=== PATIENT | male | born 1935 | race Caucasian/White ===

== ENCOUNTER 2017-09-27 16:26 | Inpatient (IN) | payer MEDICARE, OTHER ==
[~2017-09-27] VITALS: Ht 170.2 cm; Wt 71.8 kg
[~2017-09-27 16:26] MED LIST: ALPR0.25 PO; ASPI81TA23 PO; ATEN25TA PO; CLOP75TA PO; LISI2.5T3 PO; METF500 PO; METF500T PO; MULT1TAB46 PO; NITR1SUB3 SL; ONDA4TAB15 PO; PANT40TA3 PO; ROBA100S PO; ROSU10 PO; SERT-129 PO; TAMS0.4C4 PO
--- NOTE | 2017-09-27 16:44 | PD ---
HPI Chief Complaint: Tesfaye ACT Time Seen by Provider: 16:41 Travel History International Travel<30 days: No Contact w/Intl Traveler<30days: No History of Present Illness HPI Patient is an 81-year-old male with a history of dementia presents emergency department from nursing facility for refusal to take his meds and some aggravated behavior. Law enforcement was called and was placed under Tesfaye act prior to arrival. The patient presently confused on arrival has no complaints currently. He is not oriented to place or situation only to himself. This significantly limits his history. According the Tesfaye act he has not been taking his meds been combative and threatening to leave so they transported him here. PFSH Past Medical History Arthritis: No Asthma: No Autoimmune Disease: No Blood Disorders: No Anxiety: No Depression: Yes Heart Rhythm Problems: No Cancer: Yes (MELANOMA- LEFT CHEEK, FOREHEAD-EXCISED) Cardiac Catheterization: Yes (X 2 IS F/B DR MARIA) Cardiovascular Problems: Yes (coronary artery disease; angina pectoralis; inferior wall [place] ; hyperlipemia) High Cholesterol: No Chemotherapy: No Chest Pain: Yes (08/23) Congestive Heart Failure: No COPD: No Cerebrovascular Accident: Yes ([id number]) Coronary Artery Disease: Yes Diabetes: Yes (DIET CONTROL) Diminished Hearing: No Endocrine: Yes Gastrointestinal Disorders: Yes GERD: No Glaucoma: No Genitourinary: Yes Headaches: No Hepatitis: No Hiatal Hernia: No Hypertension: Yes Immune Disorder: No Kidney Stones: No Musculoskeletal: No Neurologic: No Psychiatric: No Reproductive: No Respiratory: No Migraines: No Myocardial Infarction: Yes ([place] X 2) Radiation Therapy: Yes (FOREHEAD LESION) Renal Failure: No Seizures: Yes Sickle Cell Disease: No Sleep Apnea: No Thyroid Disease: No Ulcer: No Past Surgical History Abdominal Surgery: No AICD: No Appendectomy: No Arteriovenous Shunt: No Cardiac Surgery: Yes (cardiac stent) Cholecystectomy: No Coronary Stent: Yes (2 EPISODES OF STENT PLACEMENT - (F/B DR MARIA)) Ear Surgery: No Endocrine Surgery: No Eye Surgery: No Genitourinary Surgery: No Gynecologic Surgery: No Insulin Pump: No Joint Replacement: No Oral Surgery: No Pacemaker: No Thoracic Surgery: No Tonsillectomy: Yes Other Surgery: Yes (SINUS SURG) Social History Alcohol Use: Yes (GLASS OF WINE DAILY) Tobacco Use: No Substance Use: No Allergies-Medications (Allergen,Severity, Reaction): Coded Allergies: ciprofloxacin (Verified Allergy, Severe, CHEST PRESSURE, 08/25/17) phenytoin (Verified Allergy, Severe, 08/25/17) Pt states that he hallucinated and had other bad reactions. acetaminophen (Verified Allergy, Mild, ITCHY, 08/25/17) oxycodone (Verified Allergy, Mild, ITCHY, 08/25/17) Reported Meds & Prescriptions Reported Meds & Active Scripts Active Reported Multi Vitamin Daily (Multiple Vitamin) 1 Tab Tab 1 Tab PO DAILY Ondansetron (Ondansetron HCl) 4 Mg Tab 4 Mg PO Q8HR PRN MDD 12mg Nitroglycerin SL (Nitroglycerin) 0.4 Mg Subl 0.4 Mg SL ONCE Tamsulosin (Tamsulosin HCl) 0.4 Mg Cap 0.4 Mg PO DAILY Sertraline (Sertraline HCl) 100 Mg Tab 100 Mg PO HS Crestor (Rosuvastatin Calcium) 10 Mg Tab 10 Mg PO EVERY OTHER DAY Pantoprazole (Pantoprazole Sodium) 40 Mg Tab 40 Mg PO DAILY Glucophage (Metformin HCl) 500 Mg Tab 500 Mg PO DAILY@1600 Metformin (Metformin HCl) 500 Mg Tab 1,000 Mg PO DAILY@0600 Lisinopril 2.5 Mg Tab 2.5 Mg PO DAILY Clopidogrel (Clopidogrel Bisulfate) 75 Mg Tab 75 Mg PO EVERY OTHER DAY Atenolol 25 Mg Tab 25 Mg PO QD Aspirin EC (Aspirin) 81 Mg Tabdr 81 Mg PO DAILY Review of Systems Except as stated in HPI: all other systems reviewed are Neg Physical Exam Narrative GENERAL: Well-developed well-nourished, pleasantly confused, smiling, flirtatious with nursing SKIN: Focused skin assessment warm/dry. No lacerations and abrasions in his person HEAD: Atraumatic. Normocephalic. EYES: Pupils equal and round. No scleral icterus. No injection or drainage. ENT: No nasal bleeding or discharge. Mucous membranes pink and moist. NECK: Trachea midline. No JVD. CARDIOVASCULAR: Regular rate and rhythm. No murmur appreciated. RESPIRATORY: No accessory muscle use. Clear to auscultation. Breath sounds equal bilaterally. GASTROINTESTINAL: Abdomen soft, non-tender, nondistended. Hepatic and splenic margins not palpable. MUSCULOSKELETAL: No obvious deformities. No clubbing. No cyanosis. No edema. NEUROLOGICAL: Awake and alert. No obvious cranial nerve deficits. Motor grossly within normal limits. Normal speech. PSYCHIATRIC: Appropriate mood and affect; insight and judgment normal. Data Data Last Documented VS Vital Signs Date Time Temp Pulse Resp B/P (MAP) Pulse Ox O2 Delivery O2 Flow Rate FiO2 09/27/17 17:08 72 18 09/27/17 17:01 98.7 158/85 (109) 99 Orders Orders Alprazolam (Xanax) (09/27/17 16:45) Complete Blood Count With Diff (09/27/17 16:41) Comprehensive Metabolic Panel (09/27/17 16:41) Thyroid Stimulating Hormone (09/27/17 16:41) Psych Screen (09/27/17 16:41) Drug Screen, Random Urine (09/27/17 16:41) Alcohol (Ethanol) (09/27/17 16:41) Urinalysis - C+S If Indicated (09/27/17 17:17) Zolpidem (Ambien) (09/27/17 19:45) Labs Laboratory Tests Test 09/27/17 16:49 09/27/17 16:55 White Blood Count 10.3 TH/MM3 Red Blood Count 4.57 MIL/MM3 Hemoglobin 13.4 GM/DL Hematocrit 39.4 % Mean Corpuscular Volume 86.1 FL Mean Corpuscular Hemoglobin 29.3 PG Mean Corpuscular Hemoglobin Concent 34.0 % Red Cell Distribution Width 14.4 % Platelet Count 279 TH/MM3 Mean Platelet Volume 9.0 FL Neutrophils (%) (Auto) 78.9 % Lymphocytes (%) (Auto) 12.3 % Monocytes (%) (Auto) 7.1 % Eosinophils (%) (Auto) 1.3 % Basophils (%) (Auto) 0.4 % Neutrophils # (Auto) 8.1 TH/MM3 Lymphocytes # (Auto) 1.3 TH/MM3 Monocytes # (Auto) 0.7 TH/MM3 Eosinophils # (Auto) 0.1 TH/MM3 Basophils # (Auto) 0.0 TH/MM3 CBC Comment DIFF FINAL Differential Comment Blood Urea Nitrogen 13 MG/DL Creatinine 0.87 MG/DL Random Glucose 137 MG/DL Total Protein 8.4 GM/DL Albumin 3.7 GM/DL Calcium Level 9.6 MG/DL Alkaline Phosphatase 125 U/L Aspartate Amino Transf (AST/SGOT) 16 U/L Alanine Aminotransferase (ALT/SGPT) 14 U/L Total Bilirubin 0.6 MG/DL Sodium Level 135 MEQ/L Potassium Level 4.3 MEQ/L Chloride Level 102 MEQ/L Carbon Dioxide Level 28.1 MEQ/L Anion Gap 5 MEQ/L Estimat Glomerular Filtration Rate 84 ML/MIN Thyroid Stimulating Hormone 3rd Gen 2.110 uIU/ML Ethyl Alcohol Level LESS THAN 3 MG/DL Urine Color YELLOW Urine Turbidity CLEAR Urine pH 7.0 Urine Specific [place] 1.009 Urine Protein NEG mg/dL Urine Glucose (UA) NEG mg/dL Urine Ketones NEG mg/dL Urine Occult Blood NEG Urine Nitrite NEG Urine Bilirubin NEG Urine Urobilinogen LESS THAN 2.0 MG/DL Urine Leukocyte Esterase NEG Urine RBC 1 /hpf Urine WBC 1 /hpf Microscopic Urinalysis Comment CULT NOT INDICATED Urine Opiates Screen NEG Urine Barbiturates Screen NEG Urine Amphetamines Screen NEG Urine Benzodiazepines Screen NEG Urine Cocaine Screen NEG Urine Cannabinoids Screen NEG MDM Medical Decision Making Medical Screen Exam Complete: Yes Emergency Medical Condition: Yes Differential Diagnosis Vascular dementia, Alzheimer's dementia, behavioral disturbance, urinary tract infection, electrolyte abnormality Narrative Course Patient room to the emergency department, has no complaints that warrant further workup at this time, no history of trauma, is under Tesfaye act but I see no evidence for further medical workup at this time, UA negative, CBC CMP and TSH normal. Patient is medically cleared for psychiatric evaluation under Tesfaye act Diagnosis Primary Impression: Vascular dementia Condition: Stable Graham Garza MD Sep 27, 2017 16:44
[2017-09-27] MEDS ORDERED: ALPRAZolam 0.5 MG TAB PO ONE (16:45)
[2017-09-27 17:01] VITALS: BP 158/85; PULSE 72; RESP 18; TEMP 98.7; O2SAT 99
[2017-09-27 17:21] LABS: AUTOMATED NEUTROPHIL # 8.1 TH/MM3 (1.8-7.7); BASOPHIL % 0.4 % (0.0-2.0); EOSINOPHIL # 0.1 TH/MM3 (0-0.4); EOSINOPHIL % 1.3 % (0.0-4.0); HEMATOCRIT 39.4 % (39.0-51.0); HEMOGLOBIN 13.4 GM/DL (13.0-17.0); LYMPH % 12.3 % (9.0-44.0); LYMPHOCYTE # 1.3 TH/MM3 (1.0-4.8); MEAN CELL VOLUME 86.1 FL (80.0-100.0); MEAN CORPUSCULAR HEMOGLOBIN 29.3 PG (27.0-34.0); MONO % 7.1 % (0.0-8.0); MONOCYTE # 0.7 TH/MM3 (0-0.9); NEUT % 78.9 % (16.0-70.0); PLATELET COUNT 279 TH/MM3 (150-450); RED BLOOD COUNT 4.57 MIL/MM3 (4.50-5.90); RED CELL DISTRIBUTION WIDTH 14.4 % (11.6-17.2); WHITE BLOOD COUNT 10.3 TH/MM3 (4.0-11.0)
[2017-09-27 17:37] LABS: ALBUMIN 3.7 GM/DL (3.4-5.0); AST (GOT) 16 U/L (15-37); BICARBONATE 28.1 MEQ/L (21.0-32.0); BLOOD UREA NITROGEN 13 MG/DL (7-18); CALCIUM 9.6 MG/DL (8.5-10.1); CHLORIDE 102 MEQ/L (98-107); CREATININE 0.87 MG/DL (0.60-1.30); GLOMERULAR FILTRATION RATE 84 ML/MIN (>89); GLUCOSE,RANDOM 137 MG/DL (74-106); SODIUM (NA) 135 MEQ/L (136-145)
[2017-09-27 17:38] LABS: ALT (GPT) 14 U/L (12-78)
[2017-09-27 17:48] LABS: ALKALINE PHOSPHATASE 125 U/L (45-117); TOTAL BILIRUBIN ADULT 0.6 MG/DL (0.2-1.0); TOTAL PROTEIN 8.4 GM/DL (6.4-8.2)
[2017-09-27 17:56] LABS: BILIRUBIN, URINE NEG (NEG); BLOOD, URINE NEG (NEG); GLUCOSE,URINE NEG (NEG); KETONE, URINE NEG (NEG); NITRITE,URINE NEG (NEG); URINE COLOR YELLOW (YELLW/STRAW); URINE LEUKOCYTE ESTERASE NEG (NEG)
[2017-09-27] MEDS ORDERED: ZOLPIDEM TARTRATE 10 MG TAB PO ONE (19:45)
[2017-09-28] VITALS: BP 117/70; PULSE 77; RESP 18; O2SAT 100
[2017-09-28 04:00] VITALS: BP 128/61; PULSE 79; RESP 18; O2SAT 99
[2017-09-28 06:14] VITALS: BP 124/78; PULSE 75; RESP 16; O2SAT 96
--- NOTE | 2017-09-28 06:55 | PD ---
Physical Exam Narrative Patient evidently acting aggressively at long-term, awaiting psychiatric evaluation. Patient is currently resting comfortably with no complaints Data Data Last Documented VS Vital Signs Date Time Temp Pulse Resp B/P (MAP) Pulse Ox O2 Delivery O2 Flow Rate FiO2 09/28/17 06:14 75 16 124/78 (93) 96 Room Air 09/27/17 17:01 98.7 Orders Orders Alprazolam (Xanax) (09/27/17 16:45) Complete Blood Count With Diff (09/27/17 16:41) Comprehensive Metabolic Panel (09/27/17 16:41) Thyroid Stimulating Hormone (09/27/17 16:41) Psych Screen (09/27/17 16:41) Drug Screen, Random Urine (09/27/17 16:41) Alcohol (Ethanol) (09/27/17 16:41) Urinalysis - C+S If Indicated (09/27/17 17:17) Zolpidem (Ambien) (09/27/17 19:45) Labs Laboratory Tests Test 09/27/17 16:49 09/27/17 16:55 White Blood Count 10.3 TH/MM3 Red Blood Count 4.57 MIL/MM3 Hemoglobin 13.4 GM/DL Hematocrit 39.4 % Mean Corpuscular Volume 86.1 FL Mean Corpuscular Hemoglobin 29.3 PG Mean Corpuscular Hemoglobin Concent 34.0 % Red Cell Distribution Width 14.4 % Platelet Count 279 TH/MM3 Mean Platelet Volume 9.0 FL Neutrophils (%) (Auto) 78.9 % Lymphocytes (%) (Auto) 12.3 % Monocytes (%) (Auto) 7.1 % Eosinophils (%) (Auto) 1.3 % Basophils (%) (Auto) 0.4 % Neutrophils # (Auto) 8.1 TH/MM3 Lymphocytes # (Auto) 1.3 TH/MM3 Monocytes # (Auto) 0.7 TH/MM3 Eosinophils # (Auto) 0.1 TH/MM3 Basophils # (Auto) 0.0 TH/MM3 CBC Comment DIFF FINAL Differential Comment Blood Urea Nitrogen 13 MG/DL Creatinine 0.87 MG/DL Random Glucose 137 MG/DL Total Protein 8.4 GM/DL Albumin 3.7 GM/DL Calcium Level 9.6 MG/DL Alkaline Phosphatase 125 U/L Aspartate Amino Transf (AST/SGOT) 16 U/L Alanine Aminotransferase (ALT/SGPT) 14 U/L Total Bilirubin 0.6 MG/DL Sodium Level 135 MEQ/L Potassium Level 4.3 MEQ/L Chloride Level 102 MEQ/L Carbon Dioxide Level 28.1 MEQ/L Anion Gap 5 MEQ/L Estimat Glomerular Filtration Rate 84 ML/MIN Thyroid Stimulating Hormone 3rd Gen 2.110 uIU/ML Ethyl Alcohol Level LESS THAN 3 MG/DL Urine Color YELLOW Urine Turbidity CLEAR Urine pH 7.0 Urine Specific [place] 1.009 Urine Protein NEG mg/dL Urine Glucose (UA) NEG mg/dL Urine Ketones NEG mg/dL Urine Occult Blood NEG Urine Nitrite NEG Urine Bilirubin NEG Urine Urobilinogen LESS THAN 2.0 MG/DL Urine Leukocyte Esterase NEG Urine RBC 1 /hpf Urine WBC 1 /hpf Microscopic Urinalysis Comment CULT NOT INDICATED Urine Opiates Screen NEG Urine Barbiturates Screen NEG Urine Amphetamines Screen NEG Urine Benzodiazepines Screen NEG Urine Cocaine Screen NEG Urine Cannabinoids Screen NEG MDM Medical Record Reviewed: Yes Supervised Visit with LIAM: Yes Differential Diagnosis Sundowning, aggressive behavior, dementia Narrative Course Patient awaiting psychiatric evaluation Diagnosis Primary Impression: Vascular dementia Qualified Codes: F01.51 - Vascular dementia with behavioral disturbance Tito Ac MD Sep 28, 2017 06:55
[2017-09-28 07:46] VITALS: BP 129/74; PULSE 74; RESP 14; O2SAT 97
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
[2017-09-28] MEDS ORDERED: ALUMINUM/MAGNESIUM/SIMETH 30 ML CUP PO PRN (16:00)
[2017-09-28] MEDS ORDERED: MAGNESIUM HYDROXIDE SUSP 30 ML CUP PO PRN (16:00)
[2017-09-28 16:52] VITALS: BP 179/75; PULSE 86; RESP 20; TEMP 97.8; O2SAT 98
[2017-09-28] MEDS ORDERED: HALOPERIDOL 5 MG TAB PO ONE (17:30)
[2017-09-28] MEDS ORDERED: LORazepam 2 MG/ML VIAL ONE (17:30)
[2017-09-28] MEDS ORDERED: HALOPERIDOL LACTATE 5 MG/ML AMP IM ONE (17:30)
[2017-09-28] MEDS ORDERED: diphenhydrAMINE HCL 50 MG/ML VIAL ONE (17:30)
[2017-09-28] MEDS ORDERED: diphenhydrAMINE HCL 50 MG/ML VIAL IM PRN (17:45)
[2017-09-28] MEDS ORDERED: LORazepam 2 MG/ML VIAL IM PRN (17:45)
[2017-09-28] MEDS ORDERED: diphenhydrAMINE HCL 25 MG CAP PO PRN (17:45)
[2017-09-28] MEDS ORDERED: LORazepam 0.5 MG TAB PO PRN (17:45)
[2017-09-28] MEDS ORDERED: SERTRALINE HCL 100 MG TAB PO SCH (21:00)
[2017-09-29 00:05] VITALS: O2SAT 98
[2017-09-29 05:25] VITALS: BP 142/65; PULSE 63; RESP 16; TEMP 97.5; O2SAT 96
[2017-09-29] MEDS ORDERED: metFORMIN HCL 500 MG TAB PO SCH (06:00)
[2017-09-29] MEDS ORDERED: LORazepam 2 MG/ML VIAL IV PUSH PRN ×4 (08:15)
[2017-09-29] MEDS ORDERED: LORazepam 1 MG TAB PO PRN (08:15)
[2017-09-29] MEDS ORDERED: FLUMAZENIL 0.5 MG/5 ML VIAL IV PUSH PRN (08:15)
[2017-09-29] MEDS ORDERED: LORazepam 2 MG TAB PO PRN (08:15)
[2017-09-29] MEDS ORDERED: HALOPERIDOL LACTATE 5 MG/ML AMP IM PRN (08:15)
[2017-09-29] MEDS: MULTIVITAMIN TAB PO SCH (09:00)
[2017-09-29] MEDS: TAMSULOSIN HCL 0.4 MG CAP PO SCH (09:00)
[2017-09-29] MEDS: ASPIRIN 81 MG CHEW TAB PO SCH (09:00)
[2017-09-29] MEDS: ATENOLOL 25 MG TAB PO SCH (09:00)
[2017-09-29] MEDS: PANTOPRAZOLE SOD 40 MG DELAYED RELEASE TAB PO SCH (09:00)
[2017-09-29] MEDS: CLOPIDOGREL 75 MG TAB PO SCH (09:00)
[2017-09-29] MEDS: QUEtiapine FUMARATE 25 MG TAB PO SCH ×3 (12:00→21:00)
[2017-09-29] MEDS ORDERED: ALUMINUM/MAGNESIUM/SIMETH 30 ML CUP PO PRN (12:15)
[2017-09-29] MEDS ORDERED: hydrOXYzine HCL 50 MG TAB PO PRN (12:15)
[2017-09-29] MEDS ORDERED: MAGNESIUM HYDROXIDE SUSP 30 ML CUP PO PRN (12:15)
--- NOTE | 2017-09-29 12:36 | HHI.HP ---
Provisional Diagnosis Admission Date Sep 28, 2017 at 16:00 [facility]. Vascular dementia with behavioral disturbances F01.51 Certification of Person's Competence To Provide Express and Informed Consent I have personally examined Britton Hampton , a person being served at [facility] on, Sep 29, 2017 12:14. Express and informed consent means consent voluntarily given in writing, by a competent person, after sufficient explanation and disclosure of the subject matter involved to enable the person to make a knowing and willful decision without any element of force, fraud, deceit, duress, or other form of constraint or coercion. This person is 18 years of age or older, is not now known to be incompetent to consent to treatment with a guardian advocate, and does not have a health care surrogate or proxy currently making medical treatment decisions. I have found this person to be one of the following: [] Competent to provide express and informed consent, as defined above, for voluntary admission to this facility and is competent to provide express and informed consent for treatment. He/she has the consistent capacity to make well reasoned, willful, and knowing decisions concerning his or her medical or mental health treatment. The person fully and consistently understands the purpose of the admission for examination/placement and is fully capable of personally exercising all rights assured under [place]xxx] Incompetent to provide express and informed consent to voluntary admission , and this is incompetent to provide express and informed consent to treatment. The person must be transferred to involuntary status and a petition for a guardian advocate filed with the Circuit Court. [] Refusing to provide express and informed consent to voluntary admission but is competent to provide express and informed consent for treatment. The person must be discharged or transferred to involuntary status. Form shall be completed within 24 hours of a person's arrival at the receiving facility and filed in the clinical record of each person: 1. Admitted on a voluntary basis 2. Permitted to provide express and informed consent to his/her own treatment 3. Allowed to transfer from involuntary to voluntary status 4. Prior to permitting a person to consent to his or her own treatment after having been previously found incompetent to consent to treatment. History of Present Illness Capacity: Lacks Capacity HPI Patient is an 81-year-old white male who comes here under Tesfaye act by the [facility] [employer] [facility] dated 09/27/17 at 3:50 PM that document reviewed and essentially states Mr. micheal Westbrook has been combated with staff at the facility , refuses to take his medications (diabetes/blood thinners). Autumn became aggressive and try to run out of the property he remains out of control and family is also concerned for his safety it is believed that without further care Autumn will be a danger to himself or others patient seen screened in the ED urine toxicology negative bladder: Negative. At the present time patient sitting in Angelica chair in day room nurse Devin present throughout session. Patient is alert diffusely confused though he does know he is in a hospital initially thought it was [facility]. When identified it as [place] he identified it is [place] in [place]. He took some time to remember that was 2017 and the post September. He is irritable somewhat feisty and disagreeable her does not know why he is here says his children put him here. He denies prior physical and/or sexual abuse. He does acknowledge being a consistent fairly heavy drinker does not know when he took his last drink. Denies other drug use. Denies any prior psychiatric contact hospitalization her psychotropic medications. He does denies suicidality. Denies any family history of mental illness. States she has 4 adult children. I did talk to his 1 daughter who is name is more remain at [phone]. She acknowledged his long time alcohol abuse though she states he hasn't had a drink in a number of months since moving into his [facility]. She does verify the dementia that is been seen in the past outpatient by Dr. Brendon felipe neurologist on our staff. Of interest the patient is from [facility] did graduate from the same [employer] did, he graduated in 3. I in 1962. At this time patient meets criteria for further inpatient psychiatric assessment under the Tesfaye act I will do first opinion request second opinion. I feel he does not have capacity I'll ask for healthcare surrogate and guarded advocate his daughter agreed to be health care surrogate. She also has given me permission to treat patient with Seroquel Atarax Benadryl and Ativan. I did discuss the purpose of each medication of the dose range in the class of medicine effects and alternatives. Daughter states they have planned on moving him to a small home facility called [facility]. I do question the advisability of that since it is a small open facility. We'll discuss this with the family later. We will do hospitalist consult. Will also consult Dr. Leon who was seen patient in the past, also will consult with PT and OT Review of Systems Constitutional: DENIES: Diaphoretic episodes, Fatigue, Fever, Weight gain, Weight loss, Chills, Dizziness, Change in appetite, Night Sweats Endocrine: DENIES: Heat/cold intolerance, Polydipsia, Polyuria, Polyphagia Eyes: DENIES: Blurred vision, Diplopia, Eye inflammation, Eye pain, Vision loss , Photosensitivity, Double Vision Ears, nose, mouth, throat: DENIES: Tinnitus, Hearing loss, Vertigo, Nasal discharge, Oral lesions, Throat pain, Hoarseness, Ear Pain, Running Nose, Epistaxis, Sinus Pain, Toothache, Odynophagia Respiratory: DENIES: Apneas, Cough, Snoring, Wheezing, Hemoptysis, Sputum production, Shortness of breath Cardiovascular: DENIES: Chest pain, Palpitations, Syncope, Dyspnea on Exertion , PND, Lower Extremity Edema, Orthopnea, Claudication Gastrointestinal: DENIES: Abdominal pain, Black stools, Bloody stools, Constipation, Diarrhea, Nausea, Vomiting, Difficulty Swallowing, Anorexia Genitourinary: DENIES: Sexual dysfunction, Urinary frequency, Urinary incontinence, Urgency, Hematuria, Dysuria, Nocturia, Penile Discharge, Testicular Pain, Testicular Swelling Musculoskeletal: DENIES: Joint pain, Muscle aches, Stiffness, Joint Swelling, Back pain, Neck pain Integumentary: DENIES: Abnormal pigmentation, Nail changes, Pruritus, Rash Hematologic/lymphatic: DENIES: Bruising, Lymphadenopathy Neurologic: DENIES: Abnormal gait, Headache, Localized weakness, Paresthesias, Seizures, Speech Problems, Tremor, Poor Balance Psychiatric: COMPLAINS OF: Agitation Past Psych History Psychological trauma history Denies Violence risk - others (6 mos) [facility] Violence risk - self (6 mos) Low Substance Abuse History Drugs/Alcohol past 12 months Patient heavy alcohol user until moving into [facility] Past Family Social History Coded Allergies: ciprofloxacin (Verified Allergy, Severe, CHEST PRESSURE, 08/25/17) phenytoin (Verified Allergy, Severe, 08/25/17) Pt states that he hallucinated and had other bad reactions. acetaminophen (Verified Allergy, Mild, ITCHY, 08/25/17) oxycodone (Verified Allergy, Mild, ITCHY, 08/25/17) Reported Medications Multiple Vitamin (Multi Vitamin Daily) 1 Tab Tab, 1 TAB PO DAILY 08/25/17 Ondansetron (Ondansetron) 4 Mg Tab, 4 MG PO Q8HR Y for NAUSEA MDD 12mg 08/25/17 Nitroglycerin SL (Nitroglycerin SL) 0.4 Mg Subl, 0.4 MG SL ONCE 08/25/17 Tamsulosin (Tamsulosin) 0.4 Mg Cap, 0.4 MG PO DAILY 08/25/17 Sertraline (Sertraline) 100 Mg Tab, 100 MG PO HS 08/25/17 Rosuvastatin (Crestor) 10 Mg Tab, 10 MG PO EVERY OTHER DAY 08/25/17 Pantoprazole (Pantoprazole) 40 Mg Tab, 40 MG PO DAILY 08/25/17 Metformin (Glucophage) 500 Mg Tab, 500 MG PO DAILY@1600 08/25/17 Metformin (Metformin) 500 Mg Tab, 1000 MG PO DAILY@0600 08/25/17 Lisinopril (Lisinopril) 2.5 Mg Tab, 2.5 MG PO DAILY 08/25/17 Clopidogrel (Clopidogrel) 75 Mg Tab, 75 MG PO EVERY OTHER DAY 08/25/17 Atenolol (Atenolol) 25 Mg Tab, 25 MG PO QD 08/25/[address] (Aspirin EC) 81 Mg Tabdr, 81 MG PO DAILY, TAB 0 Refills 08/23/17 Discontinued Reported Medications Dextromethorphan-Guaifenesin (Robafen Dm 100-10 mg/5Ml) 100 Mg-10 Mg/5 Ml Syp, 10 ML PO Q4HR Y for COUGH 08/25/17 Alprazolam (Alprazolam) 0.25 Mg Tab, 0.25 MG PO TID 08/25/17 Current Medications Medications (Trade) Dose Ordered Sig/Rohini Route Start Time Stop Time Status Last Admin (Milk Of Magnesia Liq) 30 ml DAILY PRN PO 09/28/17 16:00 (Mag-Al Plus Susp Liq) 30 ml Q6H PRN PO 09/28/17 16:00 (Aspirin Chew) 81 mg DAILY PO 09/29/17 09:00 09/29/17 09:00 (Tenormin) 25 mg DAILY PO 09/29/17 09:00 09/29/17 09:00 (Plavix) 75 mg Q48H PO 09/29/17 09:00 09/29/17 09:00 (Glucophage) 500 mg DAILY@1600 PO 09/29/17 16:00 (Theragran) 1 tab DAILY PO 09/29/17 09:00 09/29/17 09:00 (Protonix) 40 mg DAILY PO 09/29/17 09:00 09/29/17 09:00 (Zoloft) 100 mg HS PO 09/28/17 21:00 Future Hold (Flomax) 0.4 mg DAILY PO 09/29/17 09:00 09/29/17 09:00 (Ativan) 0.5 mg Q6H PRN PO 09/28/17 17:45 (Ativan Inj) 0.5 mg Q6H PRN IM 09/28/17 17:45 (Romazicon Inj) 0.2 mg Q1M PRN IV PUSH 09/29/17 08:15 (SEROquel) 25 mg DAILY@1200,1800 PO 09/29/17 12:00 (SEROquel) 50 mg HS PO 09/29/17 21:00 (Benadryl) 50 mg HS PRN PO 09/29/17 12:15 UNV (Milk Of Magnesia Liq) 30 ml DAILY PRN PO 09/29/17 12:15 UNV (Mag-Al Plus Susp Liq) 30 ml Q6H PRN PO 09/29/17 12:15 UNV (Atarax) 50 mg Q6H PRN PO 09/29/17 12:15 UNV Family Psych History Family history schizophrenia Social History Patient without has 4 adult children who are supportive Patient's Strengths (min. 2) Patient verbal atelectasis health care has supportive family Physical Exam Patient medically cleared in ED exam reviewed and agreed with patient sitting quietly in day room, in no acute distress, no respiratory distress, no complaints abdominal pain, patient moving all 4 extremities without difficulty though does use walker Vital Signs Vital Signs Date Time Temp Pulse Resp B/P (MAP) Pulse Ox O2 Delivery O2 Flow Rate FiO2 09/29/17 05:25 97.5 63 16 142/65 (90) 96 09/29/17 00:05 21 09/28/17 07:46 Room Air I/O 09/29/17 09/29/17 09/30/17 08:00 16:00 00:00 Intake Total 240 ml Balance 240 ml Mental Status Examination Appearance: Appropriate Consciousness: Alert Orientation: Person, Place, Date/Time (partial) Motor Activity: Other (uses a walker) Speech: Unremarkable Language: Adequate Fund of Knowledge: Adequate Attention and Concentration: Inadequate Memory: Impaired Mood: Angry, Anxious, Irritable Affect: Appropriate Thought Process & Associations: Other (forget fall) Thought Content: Delusional (at times he believes his is in [place] with another man) Hallucination Type: None Delusion Type: Other Suicidal Ideation: No Suicidal Plan: No Suicidal Intention: No Homicidal Ideation: No Homicidal Plan: No Homicidal Intention: No Insight: Poor Judgment: Poor Assessment & Plan Problem List: (1) Vascular dementia with behavioral disturbance ICD Codes: F01.51 - Vascular dementia with behavioral disturbance Assessment & Plan Estimated LOS: 5-7 days this time patient does meet criteria for involuntary psychiatric hospitalization. I will do first opinion request second opinion. I feel does not have capacity less health care surrogate and guardian advocate will start medication of Seroquel 25 mg noon and 6 PM and 50 mg at at bedtime with permission of health care surrogate. Continue other medical medications and consultations as mentioned above Discharge Planning Placement may become problematic Request HC Surrog/Guard Advoc?: Yes Onur Camara MD Sep 29, 2017 12:36
[2017-09-29 13:40] LABS: BICARBONATE 30.6 MEQ/L (21.0-32.0); BLOOD UREA NITROGEN 18 MG/DL (7-18); CALCIUM 9.5 MG/DL (8.5-10.1); CHLORIDE 99 MEQ/L (98-107); CHOLESTEROL 125 MG/DL (120-200); GLOMERULAR FILTRATION RATE 71 ML/MIN (>89); GLUCOSE,RANDOM 200 MG/DL (74-106); SODIUM (NA) 136 MEQ/L (136-145)
[2017-09-29 13:50] LABS: CHOLESTEROL/ HDL RATIO 2.82 RATIO; HDL CHOLESTEROL 44.2 MG/DL (40.0-60.0); LDL CHOLESTEROL 63 MG/DL (0-99); TRIGLYCERIDES 90 MG/DL (42-150)
[2017-09-29 15:31] LABS: HEMOGLOBIN A1C 7.8 % (4.3-6.0)
[2017-09-29] MEDS: metFORMIN HCL 500 MG TAB PO SCH (16:15)
[2017-09-29 17:36] VITALS: BP 137/64; PULSE 75; RESP 18; TEMP 98.1; O2SAT 97
[2017-09-29] MEDS: SERTRALINE HCL 100 MG TAB PO SCH (21:00)
--- NOTE | 2017-09-29 21:04 | PD.CONS ---
HPI Service [facility] Hospitalists Consult Requested By Dr. Camara Reason for Consult Medical management. Primary Care Physician Jack Clark MD Diagnoses: (1) Vascular dementia with behavioral disturbance (2) Diabetes (3) Hypertension (4) Coronary artery disease History of Present Illness This is an 81-year-old male patient with a known medical history of vascular dementia, hypertension, hyperlipidemia and CAD who has been admitted to the psychiatry unit for behavioral disturbances secondary to his vascular dementia. Hospitalist team has been consulted for medical management. Patient's hemoglobin A1c is 7.8, uncontrolled BP, with lipid panel unremarkable on home statin. Patient is seen in his room in the psych unit who is alert and oriented x 2. Denies any new acute complaints, including fever, chills, cough, shortness of breath, abdominal pain, nausea, vomiting, diarrhea or dysuria. Patient is requesting to go home and be with his kids. He is unsure of why he is in hospital. Lives at an [facility]. Denies any recent alcohol use, does have a history of alcohol abuse. Denies any tobacco use. Review of Systems Constitutional: DENIES: Fatigue, Fever, Chills Eyes: DENIES: Blurred vision, Diplopia Respiratory: DENIES: Cough, Sputum production, Shortness of breath Cardiovascular: DENIES: Chest pain, Syncope Gastrointestinal: DENIES: Abdominal pain, Black stools, Bloody stools, Constipation, Diarrhea, Nausea, Vomiting Psychiatric: COMPLAINS OF: Anxiety, Confusion, Mood changes, Depression, Agitation Except as stated in HPI: all other systems reviewed are Neg Past Family Social History Allergies: Coded Allergies: ciprofloxacin (Verified Allergy, Severe, CHEST PRESSURE, 08/25/17) phenytoin (Verified Allergy, Severe, 08/25/17) Pt states that he hallucinated and had other bad reactions. acetaminophen (Verified Allergy, Mild, ITCHY, 08/25/17) oxycodone (Verified Allergy, Mild, ITCHY, 08/25/17) Past Medical History Vascular dementia Hypertension Diabetes Hyperlipidemia CAD Past Surgical History CABG 2013 Reported Medications Active Reported Multi Vitamin Daily (Multiple Vitamin) 1 Tab Tab 1 Tab PO DAILY Ondansetron (Ondansetron HCl) 4 Mg Tab 4 Mg PO Q8HR PRN MDD 12mg Nitroglycerin SL (Nitroglycerin) 0.4 Mg Subl 0.4 Mg SL ONCE Tamsulosin (Tamsulosin HCl) 0.4 Mg Cap 0.4 Mg PO DAILY Sertraline (Sertraline HCl) 100 Mg Tab 100 Mg PO HS Crestor (Rosuvastatin Calcium) 10 Mg Tab 10 Mg PO EVERY OTHER DAY Pantoprazole (Pantoprazole Sodium) 40 Mg Tab 40 Mg PO DAILY Glucophage (Metformin HCl) 500 Mg Tab 500 Mg PO DAILY@1600 Metformin (Metformin HCl) 500 Mg Tab 1,000 Mg PO DAILY@0600 Lisinopril 2.5 Mg Tab 2.5 Mg PO DAILY Clopidogrel (Clopidogrel Bisulfate) 75 Mg Tab 75 Mg PO EVERY OTHER DAY Atenolol 25 Mg Tab 25 Mg PO QD Aspirin EC (Aspirin) 81 Mg Tabdr 81 Mg PO DAILY Active Ordered Medications Current Medications Medications (Trade) Dose Ordered Sig/Rohini Route Start Time Stop Time Status Last Admin (Milk Of Magnesia Liq) 30 ml DAILY PRN PO 09/28/17 16:00 (Mag-Al Plus Susp Liq) 30 ml Q6H PRN PO 09/28/17 16:00 (Aspirin Chew) 81 mg DAILY PO 09/29/17 09:00 09/29/17 09:00 (Tenormin) 25 mg DAILY PO 09/29/17 09:00 09/29/17 09:00 (Plavix) 75 mg Q48H PO 09/29/17 09:00 09/29/17 09:00 (Glucophage) 500 mg DAILY@1600 PO 09/29/17 16:00 09/29/17 16:15 (Theragran) 1 tab DAILY PO 09/29/17 09:00 09/29/17 09:00 (Protonix) 40 mg DAILY PO 09/29/17 09:00 09/29/17 09:00 (Flomax) 0.4 mg DAILY PO 09/29/17 09:00 09/29/17 09:00 (Ativan) 0.5 mg Q6H PRN PO 09/28/17 17:45 (Ativan Inj) 0.5 mg Q6H PRN IM 09/28/17 17:45 (Romazicon Inj) 0.2 mg Q1M PRN IV PUSH 09/29/17 08:15 (SEROquel) 25 mg DAILY@1200,1800 PO 09/29/17 12:00 09/29/17 18:00 (SEROquel) 50 mg HS PO 09/29/17 21:00 (Benadryl) 50 mg HS PRN PO 09/29/17 21:00 (Atarax) 50 mg Q6H PRN PO 09/29/17 12:15 (Zoloft) 100 mg HS PO 09/29/17 21:00 Family History Father had a significant history of cardiovascular disease. Social History Denies any current tobacco use. Denies any alcohol use. Denies any illicit drug use. Physical Exam Vital Signs Vital Signs Date Time Temp Pulse Resp B/P (MAP) Pulse Ox O2 Delivery O2 Flow Rate FiO2 09/29/17 17:36 98.1 75 18 137/64 (88) 97 09/29/17 05:25 97.5 63 16 142/65 (90) 96 09/29/17 00:05 98 21 09/29/17 00:05 98 Physical Exam GENERAL: Well-developed, well-nourished patient in [facility]. SKIN: Warm and dry. No rash. HEAD: Normocephalic. Atraumatic. EYES: Pupils equal and round. No scleral icterus. No injection or drainage. ENT: No nasal bleeding or discharge. Mucous membranes pink and moist. NECK: Supple. Trachea midline. CARDIOVASCULAR: Regular rate and rhythm. S1, S2 noted. No murmur appreciated. RESPIRATORY: No accessory muscle use. Clear to auscultation. Breath sounds equal bilaterally. GASTROINTESTINAL: Abdomen soft, non-tender, nondistended. Normoactive bowel sounds x4. MUSCULOSKELETAL: No obvious deformities. Extremities without clubbing, cyanosis , or edema. NEUROLOGICAL: Awake and alert. No obvious cranial nerve deficits. Motor grossly within normal limits. 5/5 muscle strength in bilateral upper and lower extremities. Normal speech. Laboratory Laboratory Tests Test 09/29/17 12:51 Blood Urea Nitrogen 18 Creatinine 1.00 Random Glucose 200 Calcium Level 9.5 Sodium Level 136 Potassium Level 4.1 Chloride Level 99 Carbon Dioxide Level 30.6 Anion Gap 6 Estimat Glomerular Filtration Rate 71 Hemoglobin A1c 7.8 Triglycerides Level 90 Cholesterol Level 125 LDL Cholesterol 63 HDL Cholesterol 44.2 Cholesterol/HDL Ratio 2.82 Thyroid Stimulating Hormone 3rd Gen 1.580 Result Diagram: 09/27/17 1649 09/29/17 1251 Assessment and Plan Problem List: (1) Vascular dementia with behavioral disturbance ICD Code: F01.51 - Vascular dementia with behavioral disturbance (2) Coronary artery disease ICD Code: I25.10 - Atherosclerotic heart disease of [place] coronary artery without angina pectoris (3) Diabetes ICD Code: E11.9 - Type 2 diabetes mellitus without complications (4) Hypertension ICD Code: I10 - Essential (primary) hypertension Assessment and Plan Vascular dementia with behavioral dementia Management per psychiatry team. Continue Seroquel, Zoloft, Atarax. Supportive care. Hypertension, chronic: Continue Atenolol. Monitor BP trends. Type 2 diabetes mellitus, chronic: Hemoglobin A1c 7.8. Continue to monitor random glucose. Place on diabetic diet, encourage compliance. Hyperlipidemia, chronic: Continue home statin. Lipid panel reviewed, unremarkable. CAD with history of CABG: Continue home aspirin and Plavix. DVT Prophylaxis: Ambulation. Thank you for this consultation, we will follow with you. Kaylie Ramos Sep 29, 2017 21:04
[2017-09-29] MEDS: diphenhydrAMINE HCL 50 MG CAP PO PRN (22:10)
[2017-09-30 05:40] VITALS: BP_SYST 52; PULSE 68; RESP 16; TEMP 97.6; O2SAT 92
[2017-09-30 08:13] VITALS: BP 149/69; PULSE 92
[2017-09-30] MEDS: TAMSULOSIN HCL 0.4 MG CAP PO SCH (08:14)
[2017-09-30] MEDS: PANTOPRAZOLE SOD 40 MG DELAYED RELEASE TAB PO SCH (08:14)
[2017-09-30] MEDS: MULTIVITAMIN TAB PO SCH (08:14)
[2017-09-30] MEDS: ASPIRIN 81 MG CHEW TAB PO SCH (08:14)
[2017-09-30] MEDS: ATENOLOL 25 MG TAB PO SCH (08:16)
[2017-09-30] MEDS: QUEtiapine FUMARATE 25 MG TAB PO SCH ×4 (11:37→21:00)
--- NOTE | 2017-09-30 12:26 | EKG ---
Date Performed: 09/29/2017 Time Performed: 13:51:49 PTAGE: 81 years EKG: Sinus rhythm PROBABLE INFERIOR MYOCARDIAL INFARCTION , PROBABLY OLD ABNORMAL ECG PREVIOUS TRACING : 11/17/2008 21.34 Since the prior tracing, there has been no significant [place] DOCTOR: Ren Mckinnon Interpretating Date/Time 09/30/2017 12:24:52
--- NOTE | 2017-09-30 12:43 | PD.PSY.CON ---
Provisional Diagnosis Admission Date Sep 28, 2017 at 16:00 [place]. Vascular dementia with behavioral disturbances F01.51 History of Present Illness Service Psychiatry Consult Requested By Dr. Camara Reason for Consult Second opinion Primary Care Physician Jack Clark MD HPI Patient is an 81-year-old white male who comes here under Tesfaye act by the [place] [employer] dated 09/27/17 at 3:50 PM that document reviewed and essentially states Mr. micheal Westbrook has been combated with staff at the facility , refuses to take his medications (diabetes/blood thinners). Autumn became aggressive and try to run out of the property he remains out of control and family is also concerned for his safety it is believed that without further care Autumn will be a danger to himself or others patient seen screened in the ED urine toxicology negative bladder: Negative. At the present time patient sitting in Angelica chair in day room nurse Devin present throughout session. Patient is alert diffusely confused though he does know he is in a hospital initially thought it was [place]. When identified it as [place] he identified it is [place] in [place]. He took some time to remember that was 2017 and the post September. He is irritable somewhat feisty and disagreeable her does not know why he is here says his children put him here. He denies prior physical and/or sexual abuse. He does acknowledge being a consistent fairly heavy drinker does not know when he took his last drink. Denies other drug use. Denies any prior psychiatric contact hospitalization her psychotropic medications. He does denies suicidality. Denies any family history of mental illness. States she has 4 adult children. I did talk to his 1 daughter who is name is more remain at [phone]. She acknowledged his long time alcohol abuse though she states he hasn't had a drink in a number of months since moving into his [facility]OL[facility]. She does verify the dementia that is been seen in the past outpatient by Dr. Brendon felipe neurologist on our staff. Of interest the patient is from [facility] did graduate from the same [employer] I did, he graduated in 3. I in 1960. At this time patient meets criteria for further inpatient psychiatric assessment under the Tesfaye act I will do first opinion request second opinion. I feel he does not have capacity I'll ask for healthcare surrogate and guarded advocate his daughter agreed to be health care surrogate. She also has given me permission to treat patient with Seroquel Atarax Benadryl and Ativan. I did discuss the purpose of each medication of the dose range in the class of medicine effects and alternatives. Daughter states they have planned on moving him to a small home facility called [facility]. I do question the advisability of that since it is a small open facility. We'll discuss this with the family later. We will do hospitalist consult. Will also consult Dr. Leon who was seen patient in the past, also will consult with PT and OT. The patient was seen today for psychiatric evaluation in second opinion. He is found walking in the archibald of the unit. He is calm, cooperative, pleasant. The patient reports feeling okay, he described his mood as fine, the patient is aware that he is in a hospital, but he doesn't know what city, and he doesn't know the time and date. Patient says that he doesn't know the reason he was transferred here. He says that he was brought here without his consent involuntary. He denies suicidal and homicidal ideation, he denies visual and auditory hallucinations. At the moment of this evaluation the patient does not present any agitation, no aggressive behavior, no behavioral dysregulation. Past Family Social History Coded Allergies: ciprofloxacin (Verified Allergy, Severe, CHEST PRESSURE, 08/25/17) phenytoin (Verified Allergy, Severe, 08/25/17) Pt states that he hallucinated and had other bad reactions. acetaminophen (Verified Allergy, Mild, ITCHY, 08/25/17) oxycodone (Verified Allergy, Mild, ITCHY, 08/25/17) Reported Medications Multiple Vitamin (Multi Vitamin Daily) 1 Tab Tab, 1 TAB PO DAILY 08/25/17 Ondansetron (Ondansetron) 4 Mg Tab, 4 MG PO Q8HR Y for NAUSEA MDD 12mg 08/25/17 Nitroglycerin SL (Nitroglycerin SL) 0.4 Mg Subl, 0.4 MG SL ONCE 08/25/17 Tamsulosin (Tamsulosin) 0.4 Mg Cap, 0.4 MG PO DAILY 08/25/17 Sertraline (Sertraline) 100 Mg Tab, 100 MG PO HS 08/25/17 Rosuvastatin (Crestor) 10 Mg Tab, 10 MG PO EVERY OTHER DAY 08/25/17 Pantoprazole (Pantoprazole) 40 Mg Tab, 40 MG PO DAILY 08/25/17 Metformin (Glucophage) 500 Mg Tab, 500 MG PO DAILY@1600 08/25/17 Metformin (Metformin) 500 Mg Tab, 1000 MG PO DAILY@0600 08/25/17 Lisinopril (Lisinopril) 2.5 Mg Tab, 2.5 MG PO DAILY 08/25/17 Clopidogrel (Clopidogrel) 75 Mg Tab, 75 MG PO EVERY OTHER DAY 08/25/17 Atenolol (Atenolol) 25 Mg Tab, 25 MG PO QD 08/25/[address] (Aspirin EC) 81 Mg Tabdr, 81 MG PO DAILY, TAB 0 Refills 08/23/17 Discontinued Reported Medications Dextromethorphan-Guaifenesin (Robafen Dm 100-10 mg/5Ml) 100 Mg-10 Mg/5 Ml Syp, 10 ML PO Q4HR Y for COUGH 08/25/17 Alprazolam (Alprazolam) 0.25 Mg Tab, 0.25 MG PO TID 08/25/17 Current Medications Medications (Trade) Dose Ordered Sig/Rohini Route Start Time Stop Time Status Last Admin (Milk Of Magnesia Liq) 30 ml DAILY PRN PO 09/28/17 16:00 (Mag-Al Plus Susp Liq) 30 ml Q6H PRN PO 09/28/17 16:00 (Aspirin Chew) 81 mg DAILY PO 09/29/17 09:00 09/30/17 08:14 (Tenormin) 25 mg DAILY PO 09/29/17 09:00 09/30/17 08:16 (Plavix) 75 mg Q48H PO 09/29/17 09:00 09/29/17 09:00 (Glucophage) 500 mg DAILY@1600 PO 09/29/17 16:00 09/29/17 16:15 (Theragran) 1 tab DAILY PO 09/29/17 09:00 09/30/17 08:14 (Protonix) 40 mg DAILY PO 09/29/17 09:00 09/30/17 08:14 (Flomax) 0.4 mg DAILY PO 09/29/17 09:00 09/30/17 08:14 (Ativan) 0.5 mg Q6H PRN PO 09/28/17 17:45 (Ativan Inj) 0.5 mg Q6H PRN IM 09/28/17 17:45 (Romazicon Inj) 0.2 mg Q1M PRN IV PUSH 09/29/17 08:15 (SEROquel) 25 mg DAILY@1200,1800 PO 09/29/17 12:00 09/29/17 18:00 (SEROquel) 50 mg HS PO 09/29/17 21:00 09/29/17 21:00 (Benadryl) 50 mg HS PRN PO 09/29/17 21:00 09/29/17 22:10 (Atarax) 50 mg Q6H PRN PO 09/29/17 12:15 (Zoloft) 100 mg HS PO 09/29/17 21:00 09/29/17 21:00 Patient's Strengths (min. 2) Patient verbal atelectasis health care has supportive family Physical Exam Vital Signs Vital Signs Date Time Temp Pulse Resp B/P (MAP) Pulse Ox O2 Delivery O2 Flow Rate FiO2 09/30/17 08:13 92 149/69 (95) 09/30/17 05:40 97.6 16 92 09/29/17 00:05 21 09/28/17 07:46 Room Air I/O 09/30/17 09/30/17 10/01/17 08:00 16:00 00:00 Intake Total 240 ml 240 ml Balance 240 ml 240 ml Lab Results Test 09/29/17 12:51 Blood Urea Nitrogen 18 MG/DL Creatinine 1.00 MG/DL Random Glucose 200 MG/DL Calcium Level 9.5 MG/DL Sodium Level 136 MEQ/L Potassium Level 4.1 MEQ/L Chloride Level 99 MEQ/L Carbon Dioxide Level 30.6 MEQ/L Anion Gap 6 MEQ/L Estimat Glomerular Filtration Rate 71 ML/MIN Hemoglobin A1c 7.8 % Triglycerides Level 90 MG/DL Cholesterol Level 125 MG/DL LDL Cholesterol 63 MG/DL HDL Cholesterol 44.2 MG/DL Cholesterol/HDL Ratio 2.82 RATIO Thyroid Stimulating Hormone 3rd Gen 1.580 uIU/ML Mental Status Examination Appearance: Appropriate Consciousness: Alert Orientation: Person, Place, Date/Time (partial) Motor Activity: Other (uses a walker) Speech: Unremarkable Language: Adequate Fund of Knowledge: Adequate Attention and Concentration: Inadequate Memory: Impaired Mood: Angry, Anxious, Irritable Affect: Appropriate Thought Process & Associations: Other (forget fall) Thought Content: Delusional (at times he believes his is in [place] with another man) Hallucination Type: None Delusion Type: Other Suicidal Ideation: No Suicidal Plan: No Suicidal Intention: No Homicidal Ideation: No Homicidal Plan: No Homicidal Intention: No Insight: Poor Judgment: Poor Assessment & Plan Problem List: (1) Vascular dementia with behavioral disturbance ICD Codes: F01.51 - Vascular dementia with behavioral disturbance Assessment & Plan: I have seen and examined this patient, reviewed the documentation, I agree and concur with Dr. Camara's assessment and plan. Assessment & Plan Estimated LOS: days Request HC Surrog/Guard Advoc?: Yes Keo Sapp MD Sep 30, 2017 12:43
--- NOTE | 2017-09-30 13:07 | HHI.PYPN ---
Subjective Remarks Patient seen in his room with nurse Rosamaria, chart review, discussed with patient. Patient alert confused but did remember that we are alumni of the same high school. The gets somewhat mixed up related to his medications. He has shown some irritability and noncompliance with medication with her nurse. He is been somewhat feisty and irritable also with hygiene with our staff. I did encourage cooperation with him he seemed to be able to process that. I did talk with his daughter in [place] (patient has 6 daughters and 1 son) we discussed patient's diagnosis treatment medication. She states the siblings have decided that this spokesperson would be the sister his name is Nika bolivar. For now will encourage cooperation with the patient Review of Systems Except as stated in HPI: all other systems reviewed are Neg Mental Status Examination Appearance: Appropriate Consciousness: Alert Orientation: Person, Place, Date/Time (partial) Motor Activity: Other (uses a walker) Speech: Unremarkable Language: Adequate Fund of Knowledge: Adequate Attention and Concentration: Inadequate Memory: Impaired Mood: Angry, Anxious, Irritable Affect: Appropriate Thought Process & Associations: Other (forget fall) Thought Content: Delusional (at times he believes his is in [place] with another man) Hallucination Type: None Delusion Type: Other Suicidal Ideation: No Suicidal Plan: No Suicidal Intention: No Homicidal Ideation: No Homicidal Plan: No Homicidal Intention: No Insight: Poor Judgment: Poor Results Vitals/IOs Vital Signs Date Time Temp Pulse Resp B/P (MAP) Pulse Ox O2 Delivery O2 Flow Rate FiO2 09/30/17 08:13 92 149/69 (95) 09/30/17 05:40 97.6 16 92 09/29/17 00:05 21 09/28/17 07:46 Room Air Intake and Output 09/30/17 09/30/17 10/01/17 08:00 16:00 00:00 Intake Total 240 ml 240 ml Balance 240 ml 240 ml Assessment & Plan Problem List: (1) Vascular dementia with behavioral disturbance ICD Codes: F01.51 - Vascular dementia with behavioral disturbance Assessment & Plan Estimated LOS: days patient continues confused demented somewhat irritable and noncompliant with medication and staff interventions. We'll continue to encourage cooperation at this time Justification for Cont. Inpt. At this time patient would decompensated placed in a lower level of care Discharge Planning Will work with family with finding appropriate placement perhaps at [facility] Request HC Surrog/Guard Advoc?: Yes Onur Camara MD Sep 30, 2017 13:07
[2017-09-30] MEDS: metFORMIN HCL 500 MG TAB PO SCH (16:28)
[2017-09-30 18:00] VITALS: BP 133/63; PULSE 74; RESP 18; TEMP 98.5; O2SAT 97
[2017-09-30] MEDS: SERTRALINE HCL 100 MG TAB PO SCH (20:59)
[2017-10-01 05:53] VITALS: BP 141/62; PULSE 70; RESP 16; TEMP 97.7; O2SAT 95
[2017-10-01] MEDS: TAMSULOSIN HCL 0.4 MG CAP PO SCH (08:59)
[2017-10-01] MEDS: CLOPIDOGREL 75 MG TAB PO SCH (09:00)
[2017-10-01] MEDS: PANTOPRAZOLE SOD 40 MG DELAYED RELEASE TAB PO SCH (09:00)
[2017-10-01] MEDS: ATENOLOL 25 MG TAB PO SCH (09:00)
[2017-10-01] MEDS: ASPIRIN 81 MG CHEW TAB PO SCH (09:00)
[2017-10-01] MEDS: MULTIVITAMIN TAB PO SCH (09:00)
--- NOTE | 2017-10-01 10:07 | HHI.PYPN ---
Subjective Remarks Patient seen in day room with nurse Eagle, chart reviewed, patient discussed with nurse. Patient compliant medications appears somewhat more cooperative today. She remains somewhat diffusely confused there appears to be some slight decrease in his paranoia and vigilance. For now continue treatment Review of Systems Except as stated in HPI: all other systems reviewed are Neg Mental Status Examination Appearance: Appropriate Consciousness: Alert Orientation: Person, Place, Date/Time (partial) Motor Activity: Other (uses a walker) Speech: Unremarkable Language: Adequate Fund of Knowledge: Adequate Attention and Concentration: Inadequate Memory: Impaired Mood: Angry, Anxious, Irritable Affect: Appropriate Thought Process & Associations: Other (forget fall) Thought Content: Delusional (at times he believes his is in [place] with another man) Hallucination Type: None Delusion Type: Other Suicidal Ideation: No Suicidal Plan: No Suicidal Intention: No Homicidal Ideation: No Homicidal Plan: No Homicidal Intention: No Insight: Poor Judgment: Poor Results Vitals/IOs Vital Signs Date Time Temp Pulse Resp B/P (MAP) Pulse Ox O2 Delivery O2 Flow Rate FiO2 10/01/17 05:53 97.7 70 16 141/62 (88) 95 09/29/17 00:05 21 09/28/17 07:46 Room Air Intake and Output 10/01/17 10/01/17 10/02/17 08:00 16:00 00:00 Intake Total 360 ml 480 ml Balance 360 ml 480 ml Assessment & Plan Problem List: (1) Vascular dementia with behavioral disturbance ICD Codes: F01.51 - Vascular dementia with behavioral disturbance Assessment & Plan Estimated LOS: days patient continues diffusely confused though somewhat less vigilant paranoid. He has improved compliance with medication Justification for Cont. Inpt. At this time patient will decompensate a placed on lower level of care Discharge Planning To be determined Request HC Surrog/Guard Advoc?: Yes Onur Camara MD Oct 01, 2017 10:07
[2017-10-01] MEDS: QUEtiapine FUMARATE 25 MG TAB PO SCH ×3 (12:11→20:46)
[2017-10-01] MEDS ORDERED: DEXTROSE 50% IN WATER 50 ML VIAL(D50) IV PUSH PRN (12:15)
[2017-10-01] MEDS ORDERED: GLUCAGON 1 MG/ML VIAL OTHER PRN (12:15)
--- NOTE | 2017-10-01 14:21 | HHI.PR ---
Subjective Remarks Follow up for DM, HTN, hyperlipidemia. Patient is sitting in a chair in the hallway. Has no acute concerns. No fever, chills. Objective Vitals Vital Signs Date Time Temp Pulse Resp B/P (MAP) Pulse Ox O2 Delivery O2 Flow Rate FiO2 10/01/17 05:53 97.7 70 16 141/62 (88) 95 09/30/17 18:00 98.5 74 18 133/63 (86) 97 I/O 09/30/17 09/30/17 09/30/17 10/01/17 10/01/17 10/01/17 07:00 15:00 23:00 07:00 15:00 23:00 Intake Total 1200 ml 720 ml 360 ml 480 ml Balance 1200 ml 720 ml 360 ml 480 ml Intake Oral 1200 ml 720 ml 360 ml 480 ml # Voids 5 2 2 Result Diagram: 09/27/17 1649 09/29/17 1251 Objective Remarks GENERAL: Alert, NAD. SKIN: Warm and dry. HEAD: Normocephalic. EYES: No scleral icterus. No injection or drainage. NECK: Supple, trachea midline. No JVD or lymphadenopathy. CARDIOVASCULAR: Regular rate and rhythm without murmurs, gallops, or rubs. RESPIRATORY: Breath sounds equal bilaterally. No accessory muscle use. GASTROINTESTINAL: Abdomen soft, non-tender, nondistended. MUSCULOSKELETAL: No cyanosis, or edema. BACK: Nontender without obvious deformity. No CVA tenderness. Procedures None. A/P Problem List: (1) Vascular dementia with behavioral disturbance ICD Code: F01.51 - Vascular dementia with behavioral disturbance (2) Coronary artery disease ICD Code: I25.10 - Atherosclerotic heart disease of [place] coronary artery without angina pectoris (3) Diabetes ICD Code: E11.9 - Type 2 diabetes mellitus without complications (4) Hypertension ICD Code: I10 - Essential (primary) hypertension Assessment and Plan This is an 81-year-old male patient with a known medical history of vascular dementia, hypertension, hyperlipidemia and CAD who has been admitted to the psychiatry unit for behavioral disturbances secondary to his vascular dementia. Hospitalist team has been consulted for medical management. Patient's hemoglobin A1c is 7.8, uncontrolled BP, with lipid panel unremarkable on home statin. Vascular dementia with behavioral dementia Management per psychiatry team. Continue Seroquel, Zoloft, Atarax. Supportive care. Hypertension, chronic: Continue Atenolol. Type 2 diabetes mellitus, chronic: Hemoglobin A1c 7.8. Re-start Metformin 500mg BIDPC. Sliding scale insulin. If blood glucose remains stable, we can check BG Qshift. Hyperlipidemia, chronic: Continue home statin. Lipid panel reviewed, unremarkable. CAD with history of CABG: Continue home aspirin and Plavix. Full code. Ambulation. Criselda Cummings DO Oct 01, 2017 14:21
[2017-10-01] MEDS: metFORMIN HCL 500 MG TAB PO SCH ×2 (16:17→18:09)
[2017-10-01] MEDS: INSULIN ASPART SUPPLEMENTAL SCALE SQ SCH ×2 (17:00→20:46)
[2017-10-01 17:27] VITALS: BP 156/69; PULSE 70; RESP 16; TEMP 98; O2SAT 96
[2017-10-01] MEDS: SERTRALINE HCL 100 MG TAB PO SCH (20:46)
[2017-10-01] MEDS: diphenhydrAMINE HCL 50 MG CAP PO PRN (20:46)
[2017-10-02 05:43] VITALS: BP 140/64; RESP 16; TEMP 97.9; O2SAT 98
[2017-10-02] MEDS: INSULIN ASPART SUPPLEMENTAL SCALE SQ SCH (08:00)
[2017-10-02 08:36] VITALS: BP 140/64; PULSE 98; RESP 16; TEMP 97.9; O2SAT 98
[2017-10-02] MEDS: TAMSULOSIN HCL 0.4 MG CAP PO SCH (09:13)
[2017-10-02] MEDS: MULTIVITAMIN TAB PO SCH (09:13)
[2017-10-02] MEDS: ASPIRIN 81 MG CHEW TAB PO SCH (09:13)
[2017-10-02] MEDS: PANTOPRAZOLE SOD 40 MG DELAYED RELEASE TAB PO SCH (09:14)
[2017-10-02] MEDS: ATENOLOL 25 MG TAB PO SCH (09:14)
[2017-10-02] MEDS: metFORMIN HCL 500 MG TAB PO SCH (09:14)
[2017-10-02] MEDS ORDERED: ASPI81TA23 PO (10:52)
[2017-10-02] MEDS ORDERED: PANT40TA3 PO (10:52)
[2017-10-02] MEDS ORDERED: SERT-129 PO (10:52)
[2017-10-02] MEDS ORDERED: TAMS0.4C4 PO (10:52)
[2017-10-02] MEDS ORDERED: MULT1TAB46 PO (10:52)
[2017-10-02] MEDS ORDERED: ATEN25TA PO (10:52)
[2017-10-02] MEDS ORDERED: METF500 PO (10:52)
[2017-10-02] MEDS ORDERED: SERO25TA PO ×2 (10:52)
[2017-10-02] MEDS ORDERED: CLOP75TA PO (10:52)
--- NOTE | 2017-10-02 11:08 | HHI.DS ---
Psychiatry Discharge Summary Inpatient Psychiatric care?: Yes Advance Directive: No Reason Not Provided: Due to Patient Condition Mental Health AdvanceDirective: No Health Care Proxy: No Admission Admission Date Sep 28, 2017 at 16:00 Admission Diagnosis: (1) Vascular dementia with behavioral disturbance ICD Code: F01.51 - Vascular dementia with behavioral disturbance Brief History Patient is an 81-year-old white male who comes here under Tesfaye act by the [place] [employer] dated 09/27/17 at 3:50 PM that document reviewed and essentially states Mr. micheal Westbrook has been combated with staff at the facility , refuses to take his medications (diabetes/blood thinners). Autumn became aggressive and try to run out of the property he remains out of control and family is also concerned for his safety it is believed that without further care Autumn will be a danger to himself or others patient seen screened in the ED urine toxicology negative bladder: Negative. At the present time patient sitting in Angelica chair in day room nurse Devin present throughout session. Patient is alert diffusely confused though he does know he is in a hospital initially thought it was [place]. When identified it as [place] he identified it is [place] in [place]. He took some time to remember that was 2017 and the post September. He is irritable somewhat feisty and disagreeable her does not know why he is here says his children put him here. He denies prior physical and/or sexual abuse. He does acknowledge being a consistent fairly heavy drinker does not know when he took his last drink. Denies other drug use. Denies any prior psychiatric contact hospitalization her psychotropic medications. He does denies suicidality. Denies any family history of mental illness. States she has 4 adult children. I did talk to his 1 daughter who is name is more remain at [phone]. She acknowledged his long time alcohol abuse though she states he hasn't had a drink in a number of months since moving into his [facility]. She does verify the dementia that is been seen in the past outpatient by Dr. Brendon felipe neurologist on our staff. Of interest the patient is from [facility] did graduate from the same [employer] I did, he graduated in 3. I in 1. At this time patient meets criteria for further inpatient psychiatric assessment under the Tesfaye act I will do first opinion request second opinion. I feel he does not have capacity I'll ask for healthcare surrogate and guarded advocate his daughter agreed to be health care surrogate. She also has given me permission to treat patient with Seroquel Atarax Benadryl and Ativan. I did discuss the purpose of each medication of the dose range in the class of medicine effects and alternatives. Daughter states they have planned on moving him to a small home facility called [facility]. I do question the advisability of that since it is a small open facility. We'll discuss this with the family later. We will do hospitalist consult. Will also consult Dr. Leon who was seen patient in the past, also will consult with PT and OT. The patient was seen today for psychiatric evaluation in second opinion. He is found walking in the archibald of the unit. He is calm, cooperative, pleasant. The patient reports feeling okay, he described his mood as fine, the patient is aware that he is in a hospital, but he doesn't know what city, and he doesn't know the time and date. Patient says that he doesn't know the reason he was transferred here. He says that he was brought here without his consent involuntary. He denies suicidal and homicidal ideation, he denies visual and auditory hallucinations. At the moment of this evaluation the patient does not present any agitation, no aggressive behavior, no behavioral dysregulation. Tobacco Use In Past 30 Days: Refused To Answer Alcohol Use: 4 or More Times Per Week Hospital Course Patient's hospital course was uneventful, he continues to show "feisty" but overall is been no significant behavioral problems he continues to speak well for himself, is able to share with me some of his high school experiences. We discussed placement issues showing some mild irritability related to being placed in an GROUP HOME, but he process did well is willing to go to the GROUP HOME. At this time patient reached maximum benefit of this hospitalization. Is to be discharged today to [facility], Rx 1 month, follow-up through that facility Results Blood Pressure 140 / 64 Vital Signs Date Time Temp Pulse Resp B/P (MAP) Pulse Ox O2 Delivery O2 Flow Rate FiO2 10/02/17 08:36 97.9 98 16 140/64 (89) 98 09/29/17 00:05 21 09/28/17 07:46 Room Air Laboratory Tests Test 09/29/17 12:51 Random Glucose 200 MG/DL (74-106) Estimat Glomerular Filtration Rate 71 ML/MIN (>89) Hemoglobin A1c 7.8 % (4.3-6.0) Laboratory Results Test 09/29/17 12:51 Cholesterol Level 125 MG/DL (120-200) HDL Cholesterol 44.2 MG/DL (40.0-60.0) Hemoglobin A1c 7.8 % (4.3-6.0) LDL Cholesterol 63 MG/DL (0-99) Triglycerides Level 90 MG/DL (42-150) Summary of Procedures None done Pending results at discharge: No Medications # of Antipsychotic meds at D/C: 1 Approp Antipsych med options 1 - Minimum of three failed multiple trials of monotherapy. 2 - Documented plan to taper to monotherapy due to previous use of multiple meds OR cross-taper in progress at D/C. 3 - Documentation of augmentation of Clozapine. 4 - Justification other than those listed in allowable values 1-3, document here : Discharge Discharge Date: Oct 02, 2017 Discharge Diagnosis: (1) Vascular dementia with behavioral disturbance Diagnosis: Principal ICD Code: F01.51 - Vascular dementia with behavioral disturbance Pt Condition on Discharge: Stable Discharge Disposition: [facility]/GROUP HOME Discharge Instructions Diet Instructions: As Tolerated, No Restrictions Activities you can perform: Regular-No Restrictions Scheduled Appointment: At Facility Discharge Time > 30 minutes Mental Status Examination Appearance: Appropriate Consciousness: Alert Orientation: Person, Place, Date/Time (partial) Motor Activity: Other (uses a walker) Speech: Unremarkable Language: Adequate Fund of Knowledge: Adequate Attention and Concentration: Inadequate Memory: Impaired Mood: Angry, Anxious, Irritable Affect: Appropriate Thought Process & Associations: Other (forget fall) Thought Content: Delusional (at times he believes his is in [place] with another man) Hallucination Type: None Delusion Type: Other Suicidal Ideation: No Suicidal Plan: No Suicidal Intention: No Homicidal Ideation: No Homicidal Plan: No Homicidal Intention: No Insight: Poor Judgment: Poor Discharge/Advance Care Plan Health Problems: (1) Vascular dementia with behavioral disturbance Goals to promote your health * To prevent worsening of your condition and complications * To maintain your health at the optimal level Directions to meet your goals Take your medications as prescribed Follow your dietary instruction Follow activity as directed Keep your appointments as scheduled Take your immunizations and boosters as scheduled If your symptoms worsen call your PCP, if no PCP go to Urgent Care Center or Emergency Room For 23/02 questions related to your inpatient stay or results of tests pending at discharge, please contact Dr. Onur Camara at Smoking is Dangerous to Your Health. Avoid second hand smoking Onur Camara MD Oct 02, 2017 11:08
== END 2017-10-02 12:08 | DRG 884 ==
LOC: NEPC 16:26 → NEDA 09-28 16:00 → H250 09-28 16:49
PROVIDERS: ADMIT Psychiatry & Neurology Psychiatry; ATTEND Psychiatry & Neurology Psychiatry
DX: F01.51 Vascular dementia, unspecified severity, with behavioral disturbance (principal); E11.9 Type 2 diabetes mellitus without complications; F32.9 Major depressive disorder, single episode, unspecified; I25.2 Old myocardial infarction; I25.10 Atherosclerotic heart disease of native coronary artery without angina pectoris; E78.5 Hyperlipidemia, unspecified; I10 Essential (primary) hypertension; Z79.84 Long term (current) use of oral hypoglycemic drugs; Z81.8 Family history of other mental and behavioral disorders; Z82.49 Family history of ischemic heart disease and other diseases of the circulatory system; Z85.820 Personal history of malignant melanoma of skin; Z86.73 Personal history of transient ischemic attack (TIA), and cerebral infarction without residual deficits; Z88.1 Allergy status to other antibiotic agents; Z88.5 Allergy status to narcotic agent; Z88.6 Allergy status to analgesic agent; Z91.14 Patient's other noncompliance with medication regimen; Z95.1 Presence of aortocoronary bypass graft; Z95.5 Presence of coronary angioplasty implant and graft
CPT/HCPCS: 80048; 80053; 80061; 80307; 81001; 82948; 83036; 84443; 85025; 93005; J1200; J1630; J2060; Q0163

== ENCOUNTER 2017-10-24 08:48 | Inpatient (IN) | payer MEDICARE ==
[~2017-10-24] VITALS: Ht 180.3 cm; Wt 72.8 kg
[~2017-10-24 08:48] MED LIST changes: -ALPR0.25 PO; -LISI2.5T3 PO; -METF500T PO; -ONDA4TAB15 PO; -ROBA100S PO; -ROSU10 PO; +SERO25TA PO
[2017-10-24 09:05] VITALS: BP 128/77; PULSE 76; RESP 16; TEMP 97.8; O2SAT 98
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
[2017-10-24 10:16] LABS: AUTOMATED NEUTROPHIL # 5.7 TH/MM3 (1.8-7.7); BASOPHIL # 0.1 TH/MM3 (0-0.2); BASOPHIL % 0.8 % (0.0-2.0); EOSINOPHIL # 0.9 TH/MM3 (0-0.4); EOSINOPHIL % 10.1 % (0.0-4.0); HEMATOCRIT 39.4 % (39.0-51.0); HEMOGLOBIN 13.3 GM/DL (13.0-17.0); LYMPH % 17.3 % (9.0-44.0); LYMPHOCYTE # 1.5 TH/MM3 (1.0-4.8); MEAN CELL VOLUME 86.5 FL (80.0-100.0); MEAN CORPUSCULAR HEMOGLOBIN 29.1 PG (27.0-34.0); MEAN CORPUSCULAR HGB CONC 33.7 % (32.0-36.0); MEAN PLATELET VOLUME 9.4 FL (7.0-11.0); MONO % 7.4 % (0.0-8.0); MONOCYTE # 0.7 TH/MM3 (0-0.9); NEUT % 64.4 % (16.0-70.0); PLATELET COUNT 265 TH/MM3 (150-450); RED BLOOD COUNT 4.55 MIL/MM3 (4.50-5.90); RED CELL DISTRIBUTION WIDTH 14.4 % (11.6-17.2); WHITE BLOOD COUNT 8.9 TH/MM3 (4.0-11.0)
[2017-10-24 10:33] LABS: ALT (GPT) 15 U/L (12-78); AST (GOT) 16 U/L (15-37); BICARBONATE 31.9 MEQ/L (21.0-32.0); BLOOD UREA NITROGEN 8 MG/DL (7-18); CALCIUM 8.9 MG/DL (8.5-10.1); CHLORIDE 103 MEQ/L (98-107); CREATININE 0.85 MG/DL (0.60-1.30); GLOMERULAR FILTRATION RATE 86 ML/MIN (>89); GLUCOSE,RANDOM 154 MG/DL (74-106); SODIUM (NA) 140 MEQ/L (136-145)
[2017-10-24 10:43] LABS: ALKALINE PHOSPHATASE 132 U/L (45-117); TOTAL BILIRUBIN ADULT 0.3 MG/DL (0.2-1.0); TOTAL PROTEIN 7.8 GM/DL (6.4-8.2)
[2017-10-24 12:00] VITALS: BP 118/83; PULSE 76; RESP 16; TEMP 97.9; O2SAT 99
[2017-10-24 15:15] VITALS: BP 145/91; PULSE 90; RESP 18; O2SAT 98
[2017-10-24] MEDS ORDERED: LORazepam 1 MG TAB PO ONE (15:45)
[2017-10-24] MEDS ORDERED: IBUPROFEN 400 MG TAB PO PRN (18:15)
[2017-10-24] MEDS ORDERED: MAGNESIUM HYDROXIDE SUSP 30 ML CUP PO PRN (18:15)
[2017-10-24] MEDS ORDERED: LORazepam 2 MG/ML VIAL IM PRN (18:15)
[2017-10-24] MEDS ORDERED: ALUMINUM/MAGNESIUM/SIMETH 30 ML CUP PO PRN (18:15)
[2017-10-24] MEDS ORDERED: NITROGLYCERIN 0.4 MG SL 25 TABS/BTL SL ONE (18:15)
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
[2017-10-24 20:45] VITALS: BP 162/84
[2017-10-24] MEDS: ASPIRIN EC 81 MG TABEC PO SCH (20:51)
[2017-10-24] MEDS: QUEtiapine FUMARATE 25 MG TAB PO SCH (21:00)
[2017-10-24] MEDS: SERTRALINE HCL 100 MG TAB PO SCH (21:00)
[2017-10-25 06:10] VITALS: BP 151/67; PULSE 65; RESP 18; TEMP 98.4; O2SAT 95
[2017-10-25] MEDS ORDERED: GLUCAGON 1 MG/ML VIAL OTHER PRN (07:30)
[2017-10-25] MEDS ORDERED: DEXTROSE 50% IN WATER 50 ML VIAL(D50) IV PUSH PRN (07:30)
[2017-10-25] MEDS: INSULIN ASPART SUPPLEMENTAL SCALE SQ SCH ×4 (08:00→20:53)
[2017-10-25] MEDS: TAMSULOSIN HCL 0.4 MG CAP PO SCH (08:21)
[2017-10-25] MEDS: PANTOPRAZOLE SOD 40 MG DELAYED RELEASE TAB PO SCH (08:21)
[2017-10-25] MEDS: ASPIRIN EC 81 MG TABEC PO SCH (08:21)
[2017-10-25] MEDS: metFORMIN HCL 500 MG TAB PO SCH ×2 (08:22→16:54)
[2017-10-25] MEDS: ATENOLOL 25 MG TAB PO SCH (08:22)
[2017-10-25] MEDS: MULTIVITAMIN TAB PO SCH (08:22)
[2017-10-25] MEDS ORDERED: NON-FORMULARY DRUG (Multiple Vitamin (Multi Vitamin Daily) 1 TAB) PO SCH (09:00)
[2017-10-25] MEDS ORDERED: PNEUMOCOCCAL POLYVALENT INJ 25 MCG/0.5 ML SYR IM ONE (10:00)
[2017-10-25 10:38] LABS: BICARBONATE 29.7 MEQ/L (21.0-32.0); BLOOD UREA NITROGEN 7 MG/DL (7-18); CALCIUM 9.2 MG/DL (8.5-10.1); CHLORIDE 100 MEQ/L (98-107); GLOMERULAR FILTRATION RATE 80 ML/MIN (>89); GLUCOSE,RANDOM 205 MG/DL (74-106); SODIUM (NA) 137 MEQ/L (136-145)
[2017-10-25 10:39] LABS: CHOLESTEROL 191 MG/DL (120-200); TRIGLYCERIDES 147 MG/DL (42-150)
[2017-10-25 10:42] LABS: CHOLESTEROL/ HDL RATIO 5.26 RATIO; HDL CHOLESTEROL 36.3 MG/DL (40.0-60.0); LDL CHOLESTEROL 125 MG/DL (0-99)
[2017-10-25] MEDS: QUEtiapine FUMARATE 25 MG TAB PO SCH ×3 (11:05→20:50)
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
[2017-10-25] MEDS: LORazepam 0.5 MG TAB PO PRN (14:50)
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
[2017-10-25 17:39] VITALS: BP 119/57; PULSE 71; RESP 18; TEMP 98.5; O2SAT 95
--- NOTE | 2017-10-25 19:48 | EKG ---
Date Performed: 10/25/2017 Time Performed: 10:58:45 PTAGE: 82 years EKG: Sinus rhythm INFERIOR MYOCARDIAL INFARCTION , PROBABLY OLD Since the previous tracing, no significant change note d ABNORMAL ECG PREVIOUS TRACING : 09/29/2017 13.51 DOCTOR: Juana Tamez Interpretating Date/Time 10/25/2017 19:46:27
[2017-10-25] MEDS: SERTRALINE HCL 100 MG TAB PO SCH (20:50)
[2017-10-26] MEDS: LORazepam 0.5 MG TAB PO PRN ×2 (06:46→20:21)
[2017-10-26 06:52] VITALS: BP 133/63; PULSE 70; RESP 18; TEMP 98; O2SAT 97
[2017-10-26] MEDS: INSULIN ASPART SUPPLEMENTAL SCALE SQ SCH ×4 (08:00→21:00)
[2017-10-26] MEDS: metFORMIN HCL 500 MG TAB PO SCH ×2 (09:08→17:49)
[2017-10-26] MEDS: ATENOLOL 25 MG TAB PO SCH (09:08)
[2017-10-26] MEDS: TAMSULOSIN HCL 0.4 MG CAP PO SCH (09:08)
[2017-10-26] MEDS: MULTIVITAMIN TAB PO SCH (09:08)
[2017-10-26] MEDS: ASPIRIN EC 81 MG TABEC PO SCH (09:08)
[2017-10-26] MEDS: CLOPIDOGREL 75 MG TAB PO SCH (09:08)
[2017-10-26] MEDS: PANTOPRAZOLE SOD 40 MG DELAYED RELEASE TAB PO SCH (09:08)
--- NOTE | 2017-10-26 10:27 | PD.TTN ---
Patient Problems 1. Discharge planning 2. Medication compliance 3. Knowledge deficit 4. Lack of coping skills Progress Toward Goals Provider Present: Dr. Phong Camara Provider Input: 10/28/17 Will meet with new pt and discuss treatment plan Nurse(s) Present: 10/26/17 None present Psychiatric Counselors Present: Brenda Downs LCSW Group Spec/RT/OT/JOHN Present: ALVARO Hahn Andrew Harrison, NITIN Group Spec/RT/OT/JOHN Input: 10/26/17 Has not attended group. Will continue to encourage group attendance Ana María Cruz/Shay Oct 26, 2017 10:27
[2017-10-26] MEDS: QUEtiapine FUMARATE 25 MG TAB PO SCH ×4 (11:38→20:19)
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
[2017-10-26] MEDS: ATORVASTATIN 20 MG TAB PO SCH (14:15)
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
[2017-10-26 18:02] VITALS: BP 139/63; PULSE 82; RESP 19; TEMP 98.2; O2SAT 96
[2017-10-26] MEDS: SERTRALINE HCL 100 MG TAB PO SCH (20:19)
[2017-10-27 05:55] VITALS: BP 155/66; PULSE 66; RESP 19; TEMP 97.4; O2SAT 94
[2017-10-27] MEDS: INSULIN ASPART SUPPLEMENTAL SCALE SQ SCH ×5 (08:00→19:49)
[2017-10-27] MEDS: ATENOLOL 25 MG TAB PO SCH (08:24)
[2017-10-27] MEDS: ATORVASTATIN 20 MG TAB PO SCH (08:24)
[2017-10-27] MEDS: MULTIVITAMIN TAB PO SCH (08:25)
[2017-10-27] MEDS: ASPIRIN EC 81 MG TABEC PO SCH (08:25)
[2017-10-27] MEDS: PANTOPRAZOLE SOD 40 MG DELAYED RELEASE TAB PO SCH (08:25)
[2017-10-27] MEDS: metFORMIN HCL 500 MG TAB PO SCH ×2 (08:25→18:00)
[2017-10-27] MEDS: TAMSULOSIN HCL 0.4 MG CAP PO SCH (09:00)
--- NOTE | 2017-10-27 09:54 | HHI.PYPN ---
Subjective Remarks Patient seen in day room with nurse Devin and counselor Brenda. Chart reviewed. Patient compliant medications. Patient discussed with nurse. Patient continues diffusely confused, quite intense labile but able to be directed. Review of Systems Except as stated in HPI: all other systems reviewed are Neg Mental Status Examination Appearance: Appropriate Consciousness: Alert Orientation: Person, Place Speech: Unremarkable Language: Adequate Fund of Knowledge: Inadequate Attention and Concentration: Adequate Memory: Impaired Mood: Appropriate Affect: Appropriate Thought Process & Associations: Linear Thought Content: Delusional Hallucination Type: None Delusion Type: Paranoid Suicidal Ideation: No Suicidal Plan: No Suicidal Intention: No Homicidal Ideation: No Homicidal Plan: No Homicidal Intention: No Insight: Poor Judgment: Poor Results Vitals/IOs Vital Signs Date Time Temp Pulse Resp B/P (MAP) Pulse Ox O2 Delivery O2 Flow Rate FiO2 10/27/17 05:55 97.4 66 19 155/66 (95) 94 10/24/17 15:15 Room Air Assessment & Plan Problem List: (1) Dementia with behavioral disturbance ICD Codes: F03.91 - Unspecified dementia with behavioral disturbance Assessment & Plan Estimated LOS: days patient continues diffusely confused and demented, though compliant with medications, still somewhat irritable intense labile. For now continue treatment Justification for Cont. Inpt. This time patient will decompensate and placed in a lower level of care Discharge Planning To be determined Request HC Surrog/Guard Advoc?: Yes Problem Qualifiers (1) Dementia with behavioral disturbance: Qualified Codes: G30.1 - Alzheimer's disease with late onset; F02.81 - Dementia in other diseases classified elsewhere with behavioral disturbance Onur Camara MD Oct 27, 2017 09:54
[2017-10-27] MEDS: QUEtiapine FUMARATE 25 MG TAB PO SCH ×3 (13:29→21:17)
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
[2017-10-27 18:06] VITALS: BP 112/64; PULSE 82; RESP 20; TEMP 98.2; O2SAT 99
[2017-10-27] MEDS: SERTRALINE HCL 100 MG TAB PO SCH (21:17)
[2017-10-28] MEDS: INSULIN ASPART SUPPLEMENTAL SCALE SQ SCH ×4 (07:58→20:23)
[2017-10-28] MEDS: ASPIRIN EC 81 MG TABEC PO SCH (08:23)
[2017-10-28] MEDS: LISINOPRIL 5 MG TAB PO SCH (08:24)
[2017-10-28] MEDS: ATORVASTATIN 20 MG TAB PO SCH (08:24)
[2017-10-28] MEDS: metFORMIN HCL 500 MG TAB PO SCH ×2 (08:24→17:04)
[2017-10-28] MEDS: ATENOLOL 25 MG TAB PO SCH (08:24)
[2017-10-28] MEDS: PANTOPRAZOLE SOD 40 MG DELAYED RELEASE TAB PO SCH (08:24)
[2017-10-28] MEDS: MULTIVITAMIN TAB PO SCH (08:24)
[2017-10-28] MEDS: TAMSULOSIN HCL 0.4 MG CAP PO SCH (08:24)
[2017-10-28] MEDS: CLOPIDOGREL 75 MG TAB PO SCH (08:25)
--- NOTE | 2017-10-28 12:32 | HHI.PYPN ---
Subjective Remarks Patient seen in [facility] with her staff, chart review, patient compliant medications , patient discussed with nurse. Patient continues diffusely confused, though he has also been intrusive asking why he is not being discharged should call his family and tell them to pick him up. At times he seems to be becoming somewhat irritable with this. Will increase daytime Seroquel to 50 mg 8 AM 1 PM and 6 PM continue at bedtime dose no change Review of Systems Except as stated in HPI: all other systems reviewed are Neg Mental Status Examination Appearance: Appropriate Consciousness: Alert Orientation: Person, Place Speech: Unremarkable Language: Adequate Fund of Knowledge: Inadequate Attention and Concentration: Adequate Memory: Impaired Mood: Appropriate Affect: Appropriate Thought Process & Associations: Linear Thought Content: Delusional Hallucination Type: None Delusion Type: Paranoid Suicidal Ideation: No Suicidal Plan: No Suicidal Intention: No Homicidal Ideation: No Homicidal Plan: No Homicidal Intention: No Insight: Poor Judgment: Poor Results Vitals/IOs Vital Signs Date Time Temp Pulse Resp B/P (MAP) Pulse Ox O2 Delivery O2 Flow Rate FiO2 10/27/17 18:06 98.2 82 20 112/64 (80) 99 10/24/17 15:15 Room Air Assessment & Plan Problem List: (1) Dementia with behavioral disturbance ICD Codes: F03.91 - Unspecified dementia with behavioral disturbance Assessment & Plan Estimated LOS: days patient remains demented confused though with increased irritability related to his frustration with discharge. See medication adjustments above patient scheduled for [place] court hearing tomorrow Justification for Cont. Inpt. At this time patient will decompensate if place a lower level of care Discharge Planning To be determined Request HC Surrog/Guard Advoc?: Yes Problem Qualifiers (1) Dementia with behavioral disturbance: Qualified Codes: G30.1 - Alzheimer's disease with late onset; F02.81 - Dementia in other diseases classified elsewhere with behavioral disturbance Onur Camara MD Oct 28, 2017 12:32
[2017-10-28] MEDS: QUEtiapine FUMARATE 25 MG TAB PO SCH ×3 (13:00→20:24)
[2017-10-28] MEDS: LORazepam 0.5 MG TAB PO PRN (17:15)
[2017-10-28 17:16] VITALS: BP 124/72; PULSE 74
[2017-10-28 18:20] LABS: HEMOGLOBIN A1C 7.8 % (4.3-6.0)
[2017-10-28] MEDS: SERTRALINE HCL 100 MG TAB PO SCH (20:24)
[2017-10-28] MEDS: diphenhydrAMINE HCL 50 MG CAP PO PRN (21:16)
[2017-10-29 06:01] VITALS: BP 114/63; PULSE 61; RESP 16; TEMP 98; O2SAT 97
[2017-10-29] MEDS: INSULIN ASPART SUPPLEMENTAL SCALE SQ SCH ×4 (07:29→20:53)
[2017-10-29] MEDS: TAMSULOSIN HCL 0.4 MG CAP PO SCH (09:48)
[2017-10-29] MEDS: QUEtiapine FUMARATE 25 MG TAB PO SCH ×4 (09:48→20:52)
[2017-10-29] MEDS: ASPIRIN EC 81 MG TABEC PO SCH (09:48)
[2017-10-29] MEDS: LISINOPRIL 5 MG TAB PO SCH (09:48)
[2017-10-29] MEDS: PANTOPRAZOLE SOD 40 MG DELAYED RELEASE TAB PO SCH (09:48)
[2017-10-29] MEDS: MULTIVITAMIN TAB PO SCH (09:48)
[2017-10-29] MEDS: metFORMIN HCL 500 MG TAB PO SCH ×2 (09:48→17:02)
[2017-10-29] MEDS: ATENOLOL 25 MG TAB PO SCH (09:49)
[2017-10-29] MEDS: ATORVASTATIN 20 MG TAB PO SCH (09:49)
[2017-10-29] MEDS: LORazepam 0.5 MG TAB PO PRN (13:13)
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
[2017-10-29 16:39] VITALS: BP 114/53; PULSE 63; RESP 16; TEMP 97.8; O2SAT 99
[2017-10-29] MEDS: diphenhydrAMINE HCL 50 MG CAP PO PRN (20:52)
[2017-10-29] MEDS: SERTRALINE HCL 100 MG TAB PO SCH (20:52)
[2017-10-30 05:59] VITALS: BP 153/67; PULSE 67; RESP 16; TEMP 98; O2SAT 95
[2017-10-30] MEDS: INSULIN ASPART SUPPLEMENTAL SCALE SQ SCH ×4 (08:00→21:00)
[2017-10-30] MEDS: ATENOLOL 25 MG TAB PO SCH (08:44)
[2017-10-30] MEDS: PANTOPRAZOLE SOD 40 MG DELAYED RELEASE TAB PO SCH (08:44)
[2017-10-30] MEDS: QUEtiapine FUMARATE 25 MG TAB PO SCH ×4 (08:44→21:07)
[2017-10-30] MEDS: ASPIRIN EC 81 MG TABEC PO SCH (08:45)
[2017-10-30] MEDS: metFORMIN HCL 500 MG TAB PO SCH ×2 (08:45→16:38)
[2017-10-30] MEDS: ATORVASTATIN 20 MG TAB PO SCH (08:45)
[2017-10-30] MEDS: CLOPIDOGREL 75 MG TAB PO SCH (08:46)
[2017-10-30] MEDS: TAMSULOSIN HCL 0.4 MG CAP PO SCH (08:46)
[2017-10-30] MEDS: MULTIVITAMIN TAB PO SCH (08:46)
[2017-10-30] MEDS: LISINOPRIL 5 MG TAB PO SCH (08:47)
[2017-10-30] MEDS: LORazepam 0.5 MG TAB PO PRN (12:04)
--- NOTE | 2017-10-30 13:41 | HHI.PYPN ---
Subjective Remarks Patient seen in day room with nurse Guillermo, chart review, patient discussed with nurse, patient compliant medications. Patient continues somewhat feisty and his Nery mold but overall most of behavioral problems, some focus on discharge though there to is also redirectable. Continue to work on placement issues with this gentleman. For now continue treatment. His confusion dementia remain unchanged Review of Systems Except as stated in HPI: all other systems reviewed are Neg Mental Status Examination Appearance: Appropriate Consciousness: Alert Orientation: Person, Place Speech: Unremarkable Language: Adequate Fund of Knowledge: Inadequate Attention and Concentration: Adequate Memory: Impaired Mood: Appropriate Affect: Appropriate Thought Process & Associations: Linear Thought Content: Delusional Hallucination Type: None Delusion Type: Paranoid Suicidal Ideation: No Suicidal Plan: No Suicidal Intention: No Homicidal Ideation: No Homicidal Plan: No Homicidal Intention: No Insight: Poor Judgment: Poor Results Vitals/IOs Vital Signs Date Time Temp Pulse Resp B/P (MAP) Pulse Ox O2 Delivery O2 Flow Rate FiO2 10/30/17 05:59 98.0 67 16 153/67 (95) 95 Intake and Output 10/30/17 10/30/17 10/31/17 08:00 16:00 00:00 Intake Total 480 ml Balance 480 ml Assessment & Plan Problem List: (1) Dementia with behavioral disturbance ICD Codes: F03.91 - Unspecified dementia with behavioral disturbance Assessment & Plan Estimated LOS: days patient continues confused and demented, no significant behavioral problems at this time. For now continue treatment Justification for Cont. Inpt. At this time patient with decompensated placed in a lower level of care Discharge Planning To be determined Request HC Surrog/Guard Advoc?: Yes Problem Qualifiers (1) Dementia with behavioral disturbance: Qualified Codes: G30.1 - Alzheimer's disease with late onset; F02.81 - Dementia in other diseases classified elsewhere with behavioral disturbance Onur Camara MD Oct 30, 2017 13:41
[2017-10-30 16:06] VITALS: BP 158/69; PULSE 68; RESP 16; TEMP 98.3; O2SAT 96
[2017-10-30] MEDS: SERTRALINE HCL 100 MG TAB PO SCH (21:07)
[2017-10-30] MEDS: diphenhydrAMINE HCL 50 MG CAP PO PRN (22:15)
[2017-10-31 05:52] VITALS: BP 120/58; PULSE 68; RESP 16; TEMP 98.1; O2SAT 97
[2017-10-31] MEDS: INSULIN ASPART SUPPLEMENTAL SCALE SQ SCH ×4 (08:00→21:00)
[2017-10-31] MEDS: QUEtiapine FUMARATE 25 MG TAB PO SCH ×4 (08:00→20:14)
[2017-10-31] MEDS: LISINOPRIL 5 MG TAB PO SCH (08:44)
[2017-10-31] MEDS: TAMSULOSIN HCL 0.4 MG CAP PO SCH (08:44)
[2017-10-31] MEDS: MULTIVITAMIN TAB PO SCH (08:44)
[2017-10-31] MEDS: metFORMIN HCL 500 MG TAB PO SCH ×2 (08:44→18:08)
[2017-10-31] MEDS: PANTOPRAZOLE SOD 40 MG DELAYED RELEASE TAB PO SCH (08:44)
[2017-10-31] MEDS: ASPIRIN EC 81 MG TABEC PO SCH (08:45)
[2017-10-31] MEDS: ATENOLOL 25 MG TAB PO SCH (08:45)
[2017-10-31] MEDS: ATORVASTATIN 20 MG TAB PO SCH (08:45)
[2017-10-31] MEDS: LORazepam 0.5 MG TAB PO PRN (10:45)
--- NOTE | 2017-10-31 12:28 | HHI.PYPN ---
Subjective Remarks Patient was seen and case was discussed with nursing. Patient is alert and oriented 1. Memory deficits are evident, couple minutes after our interview he asked me if we are going to have an interview. He is behaving well on the unit. Compliant with his medications. No delusions elicited, eating and sleeping well Mental Status Examination Appearance: Appropriate Consciousness: Alert Orientation: Person, Place Speech: Unremarkable Language: Adequate Fund of Knowledge: Inadequate Attention and Concentration: Adequate Memory: Impaired Mood: Appropriate Affect: Appropriate Thought Process & Associations: Linear Thought Content: Delusional Hallucination Type: None Delusion Type: Paranoid Suicidal Ideation: No Suicidal Plan: No Suicidal Intention: No Homicidal Ideation: No Homicidal Plan: No Homicidal Intention: No Insight: Poor Judgment: Poor Results Vitals/IOs Vital Signs Date Time Temp Pulse Resp B/P (MAP) Pulse Ox O2 Delivery O2 Flow Rate FiO2 10/31/17 05:52 98.1 68 16 120/58 (78) 97 Intake and Output 10/31/17 10/31/17 11/01/17 08:00 16:00 00:00 Intake Total 0 ml 240 ml Balance 0 ml 240 ml Assessment & Plan Problem List: (1) Dementia with behavioral disturbance ICD Codes: F03.91 - Unspecified dementia with behavioral disturbance Assessment & Plan Continue current treatment plan Justification for Cont. Inpt. Patient would decompensate in a less restrictive setting Request HC Surrog/Guard Advoc?: Yes Problem Qualifiers (1) Dementia with behavioral disturbance: Qualified Codes: G30.1 - Alzheimer's disease with late onset; F02.81 - Dementia in other diseases classified elsewhere with behavioral disturbance Flakito Rivera DO Oct 31, 2017 12:28
[2017-10-31 17:30] VITALS: BP 149/69; PULSE 68; RESP 16; TEMP 98.1; O2SAT 95
[2017-10-31] MEDS: SERTRALINE HCL 100 MG TAB PO SCH (20:13)
[2017-10-31] MEDS: diphenhydrAMINE HCL 50 MG CAP PO PRN (22:29)
[2017-11-01] MEDS: LORazepam 0.5 MG TAB PO PRN (05:08)
[2017-11-01 05:40] VITALS: BP 152/70; PULSE 63; RESP 18; TEMP 97.5; O2SAT 97
[2017-11-01] MEDS: INSULIN ASPART SUPPLEMENTAL SCALE SQ SCH ×4 (08:00→21:00)
[2017-11-01] MEDS: ASPIRIN EC 81 MG TABEC PO SCH (08:50)
[2017-11-01] MEDS: TAMSULOSIN HCL 0.4 MG CAP PO SCH (08:50)
[2017-11-01] MEDS: CLOPIDOGREL 75 MG TAB PO SCH (08:50)
[2017-11-01] MEDS: LISINOPRIL 5 MG TAB PO SCH (08:50)
[2017-11-01] MEDS: metFORMIN HCL 500 MG TAB PO SCH ×2 (08:50→17:54)
[2017-11-01] MEDS: ATENOLOL 25 MG TAB PO SCH (08:50)
[2017-11-01] MEDS: ATORVASTATIN 20 MG TAB PO SCH (08:50)
[2017-11-01] MEDS: MULTIVITAMIN TAB PO SCH (08:50)
[2017-11-01] MEDS: PANTOPRAZOLE SOD 40 MG DELAYED RELEASE TAB PO SCH (08:50)
[2017-11-01] MEDS: QUEtiapine FUMARATE 25 MG TAB PO SCH ×4 (08:59→21:00)
--- NOTE | 2017-11-01 14:36 | HHI.PYPN ---
Subjective Remarks Was seen and case was discussed with nursing. Patient is pleasant and cooperative with exam. He remains forgetful but is oriented times 2. Compliant with his medications and behaving well on the unit Mental Status Examination Appearance: Appropriate Consciousness: Alert Orientation: Person, Place Speech: Unremarkable Language: Adequate Fund of Knowledge: Inadequate Attention and Concentration: Adequate Memory: Impaired Mood: Appropriate Affect: Appropriate Thought Process & Associations: Linear Thought Content: Delusional Hallucination Type: None Delusion Type: Paranoid Suicidal Ideation: No Suicidal Plan: No Suicidal Intention: No Homicidal Ideation: No Homicidal Plan: No Homicidal Intention: No Insight: Poor Judgment: Poor Results Vitals/IOs Vital Signs Date Time Temp Pulse Resp B/P (MAP) Pulse Ox O2 Delivery O2 Flow Rate FiO2 11/01/17 05:40 97.5 63 18 152/70 (97) 97 Intake and Output 11/01/17 11/01/17 11/02/17 08:00 16:00 00:00 Intake Total 0 ml Balance 0 ml Assessment & Plan Problem List: (1) Dementia with behavioral disturbance ICD Codes: F03.91 - Unspecified dementia with behavioral disturbance Assessment & Plan Continue current treatment plan Justification for Cont. Inpt. Patient would decompensate in a less restrictive setting Request HC Surrog/Guard Advoc?: Yes Problem Qualifiers (1) Dementia with behavioral disturbance: Qualified Codes: G30.1 - Alzheimer's disease with late onset; F02.81 - Dementia in other diseases classified elsewhere with behavioral disturbance Flakito Rivera DO Nov 01, 2017 14:36
[2017-11-01 18:47] VITALS: BP 119/56; PULSE 63; RESP 18; TEMP 98.2; O2SAT 97
[2017-11-01] MEDS: diphenhydrAMINE HCL 50 MG CAP PO PRN (21:00)
[2017-11-01] MEDS: SERTRALINE HCL 100 MG TAB PO SCH (21:00)
[2017-11-02] MEDS: INSULIN ASPART SUPPLEMENTAL SCALE SQ SCH (07:36)
[2017-11-02] MEDS: QUEtiapine FUMARATE 25 MG TAB PO SCH (08:00)
[2017-11-02] MEDS: LORazepam 0.5 MG TAB PO PRN (08:54)
[2017-11-02] MEDS: ATORVASTATIN 20 MG TAB PO SCH (08:54)
[2017-11-02] MEDS: metFORMIN HCL 500 MG TAB PO SCH (08:55)
[2017-11-02] MEDS: ATENOLOL 25 MG TAB PO SCH ×2 (08:55→09:00)
[2017-11-02] MEDS: ASPIRIN EC 81 MG TABEC PO SCH (08:55)
[2017-11-02] MEDS: PANTOPRAZOLE SOD 40 MG DELAYED RELEASE TAB PO SCH (08:55)
[2017-11-02] MEDS: MULTIVITAMIN TAB PO SCH (08:55)
[2017-11-02] MEDS: TAMSULOSIN HCL 0.4 MG CAP PO SCH (08:55)
[2017-11-02] MEDS: LISINOPRIL 5 MG TAB PO SCH (09:00)
[2017-11-02] MEDS ORDERED: ATOR20TA15 PO (09:47)
[2017-11-02] MEDS ORDERED: SERO50TA PO (09:47)
[2017-11-02] MEDS ORDERED: SERT-129 PO (09:47)
[2017-11-02] MEDS ORDERED: PANT40TA3 PO (09:47)
[2017-11-02] MEDS ORDERED: METF500 PO (09:47)
[2017-11-02] MEDS ORDERED: CLOP75TA PO (09:47)
[2017-11-02] MEDS ORDERED: ASPI81TA23 PO (09:47)
[2017-11-02] MEDS ORDERED: MULT1TAB46 PO (09:47)
[2017-11-02] MEDS ORDERED: ATEN25TA PO (09:47)
[2017-11-02] MEDS ORDERED: LISI-519 PO (09:47)
[2017-11-02] MEDS ORDERED: TAMS0.4C4 PO (09:47)
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
== END 2017-11-02 10:15 | DRG 884 ==
LOC: NEPD 08:48 → NEDA 18:10 → H250 18:45 → H260 10-27 10:40
PROVIDERS: ADMIT Psychiatry & Neurology Psychiatry; ATTEND Psychiatry & Neurology Psychiatry
DX: F01.51 Vascular dementia, unspecified severity, with behavioral disturbance (principal); E11.9 Type 2 diabetes mellitus without complications; I10 Essential (primary) hypertension; I25.10 Atherosclerotic heart disease of native coronary artery without angina pectoris; I25.2 Old myocardial infarction; E78.5 Hyperlipidemia, unspecified; F10.11 Alcohol abuse, in remission; R45.1 Restlessness and agitation; Z79.84 Long term (current) use of oral hypoglycemic drugs; Z81.8 Family history of other mental and behavioral disorders; Z85.820 Personal history of malignant melanoma of skin; Z86.73 Personal history of transient ischemic attack (TIA), and cerebral infarction without residual deficits; Z88.1 Allergy status to other antibiotic agents; Z88.5 Allergy status to narcotic agent; Z88.6 Allergy status to analgesic agent; Z92.3 Personal history of irradiation; Z95.5 Presence of coronary angioplasty implant and graft
CPT/HCPCS: 80048; 80053; 80061; 80307; 82948; 83036; 84443; 85025; 93005; 99285; J1815; Q0163